=== PATIENT | female | born 1955 | race Caucasian/White ===

== ENCOUNTER 2016-11-17 10:56 | Inpatient (IN) | payer OTHER ==
[2016-11-17] VITALS (8 sets, daily range): BP systolic 117–171; BP diastolic 60–82; PULSE 68–95; RESP 16–20; TEMP 99.1–100.1; O2SAT 95–97
[~2016-11-17] VITALS: Ht 154.9 cm; Wt 72.0 kg
--- NOTE | 2016-11-17 11:06 | PD ---
Physical Exam Time Seen by Provider: 11:04 Narrative 61-year-old female presents to the emergency Department with complaint of right upper quadrant abdominal pain since yesterday. Vomiting yesterday, but not today. Is on chemotherapy for pancreatic cancer, liver cancer, and spots of cancer in her hip. Denies fevers. Denies diarrhea. Is on Pradaxa. Patient seen in triage. Vital signs reviewed. Patient awaiting medical bed. Data Data Last Documented VS Vital Signs Date Time Temp Pulse Resp B/P (MAP) Pulse Ox O2 Delivery O2 Flow Rate FiO2 11/17/16 10:58 99.1 78 17 160/76 (104) 96 Room Air MDM Supervised Visit with MASTER: Elda Leon Nov 17, 2016 11:06
[2016-11-17] MEDS ORDERED: SODIUM CHLORIDE 0.9% FLUSH 10 ML FLUSH IV FLUSH PRN ×2 (11:15→18:00)
[2016-11-17] MEDS ORDERED: SODIUM CHLOR 0.9% 1000 ML INJ 1,000 ML IV SCH (13:00)
[2016-11-17] MEDS ORDERED: HYDROmorphone HCL PF 1 MG/ML VIAL IV PUSH ONE (13:00)
[2016-11-17] MEDS ORDERED: ONDANSETRON HCL 4 MG/2 ML VIAL IV PUSH ONE (13:00)
--- NOTE | 2016-11-17 13:11 | PD ---
HPI Chief Complaint: Abdominal Pain Time Seen by Provider: 12:07 Travel History International Travel<30 days: No Contact w/Intl Traveler<30days: No Traveled to known affect area: No History of Present Illness HPI This is a very pleasant 61-year-old female with unfortunate history of metastatic pancreatic cancer with metastases to the liver and right hip, who presents today with complaints of abdominal pain. Patient reports having right upper quadrant abdominal pain. She reports vomiting with nausea yesterday. She denies any diarrhea or constipation. She reports generalized weakness. There is no reported fevers, chills. There is no reported shortness of breath or cough. The patient is followed by Dr. Haydee Li here at [facility] and also a physician up at the [facility] in [place]. PFSH Past Medical History Hx Anticoagulant Therapy: Yes Cancer: Yes (PANCREATIC, LIVER, R HIP) Chemotherapy: Yes Diminished Hearing: No Tetanus Vaccination: > 5 Years Influenza Vaccination: No ?: Not : 2 Para: 2 Miscarriage: 0 : 0 Past Surgical History Neurologic Surgery: Yes (aneurysm clip) Tonsillectomy: Yes Social History Alcohol Use: No Tobacco Use: No Substance Use: No Allergies-Medications (Allergen,Severity, Reaction): Coded Allergies: No Known Allergies (Unverified , 10/26/16) Review of Systems Except as stated in HPI: all other systems reviewed are Neg General / Constitutional: No: Fever, Chills HENT: No: Headaches, Lightheadedness, Neck Pain Cardiovascular: No: Chest Pain or Discomfort, Palpitations Respiratory: No: Cough, Shortness of Breath Gastrointestinal: Positive: Nausea, Vomiting, Abdominal Pain (right upper quadrant abdominal pain.), No: Diarrhea Genitourinary: No: Urgency, Frequency, Decreased Urinary Output Musculoskeletal: Positive: Pain (right hip pain), No: Weakness Neurologic: Positive: Weakness (generalized), No: Dizziness, Headache Physical Exam Narrative GENERAL: Well-developed well-nourished female in no acute respiratory distress. SKIN: Focused skin assessment warm/dry. HEAD: Atraumatic. Normocephalic. EYES: No scleral icterus. No injection or drainage. ENT: No nasal bleeding or discharge. Mucous membranes pink and moist. NECK: Trachea midline. No JVD. Supple. CARDIOVASCULAR: Regular rate and rhythm. No murmur appreciated. RESPIRATORY: No accessory muscle use. Clear to auscultation. Breath sounds equal bilaterally. GASTROINTESTINAL: Abdomen soft, nondistended. There is tenderness to palpation in her right upper quadrant at the level of the liver and gallbladder. There is no rebound but mild guarding. RECTAL EXAM: No masses or tenderness, stool is brown. Heme-negative. MUSCULOSKELETAL: No obvious deformities. No clubbing. No cyanosis. No edema. NEUROLOGICAL: Awake and alert. No obvious cranial nerve deficits. Motor grossly within normal limits. Normal speech. PSYCHIATRIC: Appropriate mood and affect; insight and judgment normal. Data Data Last Documented VS Vital Signs Date Time Temp Pulse Resp B/P (MAP) Pulse Ox O2 Delivery O2 Flow Rate FiO2 11/17/16 16:59 77 16 168/75 (106) 97 Room Air 11/17/16 10:58 99.1 Orders Orders Complete Blood Count With Diff (11/17/16 11:07) Comprehensive Metabolic Panel (11/17/16 11:07) Lipase (11/17/16 11:07) Prothrombin Time / Inr (Pt) (11/17/16 11:07) Act Partial Throm Time (Ptt) (11/17/16 11:07) Urinalysis - C+S If Indicated (11/17/16 11:07) Iv Access Insert/Monitor (11/17/16 11:07) Sodium Chloride 0.9% Flush (Ns Flush) (11/17/16 11:15) Ct Abd/Pel W Iv Contrast(Rout) (11/17/16 12:46) Ondansetron Inj (Zofran Inj) (11/17/16 13:00) Hydromorphone Pf Inj (Dilaudid Pf Inj) (11/17/16 13:00) Sodium Chlor 0.9% 1000 Ml Inj (Ns 1000 M (11/17/16 13:00) Diatrizoate Liq ( Gastroview Liq) (11/17/16 14:54) Urine Culture (11/17/16 15:10) Iohexol 350 Inj (Omnipaque 350 Inj) (11/17/16 16:23) Admit Order (Ed Use Only) (11/17/16 17:33) Type And Screen (11/17/16 17:33) Red Blood Cells (Rbc) (11/17/16 17:33) Blood Product Administration (11/17/16 17:33) Sodium Chlor 0.9% 250 Ml Inj (Ns 250 Ml (11/17/16 17:45) Piperacil-Tazo 3.375 Gm Premix (Zosyn 3. (11/17/16 17:45) Blood Culture (11/17/16 17:33) Consult General Surgery (11/17/16 ) Labs Laboratory Tests Test 11/17/16 13:00 11/17/16 15:10 White Blood Count 10.8 TH/MM3 Red Blood Count 2.50 MIL/MM3 Hemoglobin 8.2 GM/DL Hematocrit 24.6 % Mean Corpuscular Volume 98.4 FL Mean Corpuscular Hemoglobin 32.9 PG Mean Corpuscular Hemoglobin Concent 33.5 % Red Cell Distribution Width 16.7 % Platelet Count 70 TH/MM3 Mean Platelet Volume 10.5 FL Neutrophils (%) (Auto) 81.3 % Lymphocytes (%) (Auto) 6.3 % Monocytes (%) (Auto) 12.3 % Eosinophils (%) (Auto) 0.0 % Basophils (%) (Auto) 0.1 % Neutrophils # (Auto) 8.8 TH/MM3 Lymphocytes # (Auto) 0.7 TH/MM3 Monocytes # (Auto) 1.3 TH/MM3 Eosinophils # (Auto) 0.0 TH/MM3 Basophils # (Auto) 0.0 TH/MM3 CBC Comment AUTO DIFF Differential Total Cells Counted 100 Neutrophils % (Manual) 71 % Band Neutrophils % 18 % Lymphocytes % 4 % Monocytes % 7 % Neutrophils # (Manual) 9.6 TH/MM3 Differential Comment FINAL DIFF MANUAL Platelet Estimate LOW Platelet Morphology Comment NORMAL Tear Drop Cells 1+ Ovalocytes 1+ Prothrombin Time 11.9 SEC Prothromb Time International Ratio 1.1 RATIO Activated Partial Thromboplast Time 37.9 SEC Blood Urea Nitrogen 5 MG/DL Creatinine 0.58 MG/DL Random Glucose 118 MG/DL Total Protein 7.1 GM/DL Albumin 3.0 GM/DL Calcium Level 8.7 MG/DL Alkaline Phosphatase 190 U/L Aspartate Amino Transf (AST/SGOT) 50 U/L Alanine Aminotransferase (ALT/SGPT) 66 U/L Total Bilirubin 0.5 MG/DL Sodium Level 136 MEQ/L Potassium Level 3.8 MEQ/L Chloride Level 104 MEQ/L Carbon Dioxide Level 22.9 MEQ/L Anion Gap 9 MEQ/L Estimat Glomerular Filtration Rate 105 ML/MIN Lipase 254 U/L Urine Color LIGHT-YELLOW Urine Turbidity CLEAR Urine pH 6.5 Urine Specific [place] 1.006 Urine Protein NEG mg/dL Urine Glucose (UA) NEG mg/dL Urine Ketones NEG mg/dL Urine Occult Blood NEG Urine Nitrite NEG Urine Bilirubin NEG Urine Urobilinogen LESS THAN 2.0 MG/DL Urine Leukocyte Esterase MOD Urine RBC 1 /hpf Urine WBC 16 /hpf Urine Mucus FEW /lpf Microscopic Urinalysis Comment CULTURE INDICATED MDM Medical Decision Making Medical Screen Exam Complete: Yes Emergency Medical Condition: Yes Differential Diagnosis Bowel obstruction versus worsening metastatic disease versus peptic ulcer disease versus cholecystitis Narrative Course 61-year-old female with history of pancreatic cancer with metastases to the liver and right hip. Patient presents today with complaints of nausea vomiting and epigastric pain. The patient has tenderness over her right upper quadrant. She is afebrile. Patient's white blood cell count was 10.8 with 81% segs. Hemoglobin was also 8.2 which dropped [address] scan shows what appears to be cholecystitis. Case was discussed with Dr. Alexis Ovalles, who will see the patient in consultation. He states he will likely involve interventional radiology to see if they can put a drainage tube in. The patient be started on Zosyn and will be given her first dose here in the emergency department. She'll be also typed and crossed for transfusion of 2 units of packed red blood cells. Dr. Haydee Li, patient's oncologist, is also coming to see the patient will follow up consultation. Critical Care Narrative Aggregate critical care time was 45 minutes. Time to perform other separately billable procedures was not included in the critical care time. My time did not include minutes spent treating any other patients simultaneously or on activities that did not directly contribute to the patient's treatment. The services I provided to this patient were to treat and/or prevent clinically significant deterioration that could result in: . I provided critical care services requiring my management, as noted below: Chart data review, documentation time, medication orders and management, vital sign assessments/reviewing monitor data, ordering and reviewing lab tests, ordering and interpreting/reviewing x-rays and diagnostic studies, care of the patient and discussion of the patient with the admitting physicians. Diagnosis Primary Impression: Acute cholecystitis Additional Impressions: worsening anemia Pancreatic cancer metastasized to liver Admitting Information Admitting Physician Requests: Admit uGy Haque MD Nov 17, 2016 13:11
[2016-11-17 13:53] LABS: AUTOMATED NEUTROPHIL # 8.8 TH/MM3 (1.8-7.7); BASOPHIL % 0.1 % (0.0-2.0); HEMATOCRIT 24.6 % (35.0-46.0); LYMPH % 6.3 % (9.0-44.0); LYMPHOCYTE # 0.7 TH/MM3 (1.0-4.8); MEAN CELL VOLUME 98.4 FL (80.0-100.0); MEAN CORPUSCULAR HEMOGLOBIN 32.9 PG (27.0-34.0); MEAN CORPUSCULAR HGB CONC 33.5 % (32.0-36.0); MONO % 12.3 % (0.0-8.0); NEUT % 81.3 % (16.0-70.0); PLATELET COUNT 70 TH/MM3 (150-450); RED CELL DISTRIBUTION WIDTH 16.7 % (11.6-17.2); WHITE BLOOD COUNT 10.8 TH/MM3 (4.0-11.0)
[2016-11-17 13:59] LABS: HEMO FLAGS AUTO DIFF
[2016-11-17 14:02] LABS: APTT (PATIENT) 37.9 SEC (24.3-30.1); INTERNATIONAL NORMALIZED RATIO 1.1 RATIO; PROTHROMBIN TIME - PATIENT 11.9 SEC (9.8-11.6)
[2016-11-17 14:09] LABS: ALT (GPT) 66 U/L (10-53); ANION GAP 9 MEQ/L (5-15); AST (GOT) 50 U/L (15-37); BICARBONATE 22.9 MEQ/L (21.0-32.0); BLOOD UREA NITROGEN 5 MG/DL (7-18); CHLORIDE 104 MEQ/L (98-107); GLOMERULAR FILTRATION RATE 105 ML/MIN (>89); POTASSIUM 3.8 MEQ/L (3.5-5.1); SODIUM (NA) 136 MEQ/L (136-145)
[2016-11-17 14:11] LABS: ALKALINE PHOSPHATASE 190 U/L (45-117); TOTAL BILIRUBIN ADULT 0.5 MG/DL (0.2-1.0)
[2016-11-17 14:26] LABS: BANDS 18 % (0-6); NEUTROPHIL # MANUAL DIFF 9.6 TH/MM3 (1.8-7.7); OVALOCYTES 1+ (NORMAL); PLATELET ESTIMATE SMEAR LOW (NORMAL); PLATELET MORPHOLOGY NORMAL (NORMAL); POLYS (SEG NEUTROPHILS) 71 % (16-70); SCAN/DIFF FINAL DIFF MANUAL; TEARDROP RBCS 1+ (NORMAL); WBC DIFF SAMPLE 100
[2016-11-17] MEDS ORDERED: DIATRIZOATE MEGLUM/DIATRIZOATE SOD 9 ML CUP ONE (14:54)
[2016-11-17 15:44] LABS: BLOOD, URINE NEG (NEG); COMMENT (UR) CULTURE INDICATED; CULTURE IF INDICATED CULTURE INDICATED; GLUCOSE,URINE NEG (NEG); KETONE, URINE NEG (NEG); MUCUS URINE FEW /lpf (OCC); NITRITE,URINE NEG (NEG); PH, URINE 6.5 (5.0-8.5); URINE COLOR LIGHT-YELLOW (YELLW/STRAW)
[2016-11-17] MEDS ORDERED: IOHEXOL 350 MG/ML 10 ML VIAL (for RAD DIAG) IVCONTRAST ONE (16:23)
--- NOTE | 2016-11-17 16:49 | RADRPT ---
EXAM DATE/TIME: 11/17/2016 16:09 This report includes an Addendum and supersedes previous reports for this exam. [facility] COMPARISON: No previous studies available for comparison. INDICATIONS : Abdominal pain. IV CONTRAST: 80 cc Omnipaque 350 (iohexol) IV ORAL CONTRAST: Prescribed oral contrast ingested. RADIATION DOSE: 9.04 CTDIvol (mGy) MEDICAL HISTORY : Carcinoma, pancreas. Carcinoma, hepatocellular. SURGICAL HISTORY : None. ENCOUNTER: Initial ACUITY: 1 day PAIN SCALE: 6/10 LOCATION: Bilateral abdomen TECHNIQUE: Volumetric scanning of the abdomen and pelvis was performed. Using automated exposure control and ad justment of the mA and/or kV according to patient size, radiation dose was kept as low as reasonably achievable to obtain optimal diagnostic quality images. DICOM format image data is available electro nically for review and comparison. FINDINGS: LOWER LUNGS: The visualized lower lungs are clear. LIVER: Liver demonstrates diffuse abnormality with large patchy areas of hypodensity. There are no discrete enhancing lesions or evidence of biliary duct dilatation. Portal vein is intact. Gallbladder wall is thickened and edematous. There is no evidence of calcified stones. Common bi le that is normal in caliber. SPLEEN: Normal size without lesion. PANCREAS: Within normal limits. KIDNEYS: Normal in size and shape. There is no mass, stone or hydronephrosis. ADRENAL GLANDS: Within normal limits. VASCULAR: There is no aortic aneurysm. BOWEL/MESENTERY: The stomach, small bowel, and colon demonstrate no acute abnormality. There is no free intraperitone al air. Free fluid is identified in the pelvis. ABDOMINAL WALL: Within normal limits. RETROPERITONEUM: There is no lymphadenopathy. BLADDER: No wall thickening or mass. REPRODUCTIVE: Within normal limits. INGUINAL: There is no lymphadenopathy or hernia. MUSCULOSKELETAL: Significant lower lumbar facet arthropathy is noted. CONCLUSION: 1. Parenchymal liver disease with large patchy areas of heterogeneous hypodensity. Diffuse infiltrati ve process is suspected. 2. Thickened edematous gallbladder wall consistent with acute cholecystitis. 3. Free fluid in the pelvis. 4. Lower lumbar facet arthropathy. Darci Wilkins MD on November 17, 2016 at 16:39 Board Certified Radiologist. This report was verified electronically. ADDENDUM: Hypodense region within the tail of pancreas measuring 3.3 cm in length by 1.8 cm in width represents the patient's known pancreatic carcinoma. Darci Wilkins MD on November 17, 2016 at 17:24 Board Certified Radiologist. This report was verified electronically.
[2016-11-17] MEDS ORDERED: PIPERACIL-TAZO 3.375 GM PREMIX 50 ML IV ONE (17:45)
[2016-11-17] MEDS ORDERED: SODIUM CHLOR 0.9% 250 ML INJ 250 ML IV ONE (17:45)
[2016-11-17] MEDS ORDERED: PRAD150C PO (17:55)
[2016-11-17] MEDS ORDERED: OXAL50IN IV (17:55)
[2016-11-17] MEDS ORDERED: PROM25TA10 PO (17:55)
[2016-11-17] MEDS ORDERED: MULTTAB67 PO (17:55)
[2016-11-17] MEDS ORDERED: ZOFR4TAB PO (17:55)
[2016-11-17] MEDS ORDERED: VITA500T83 PO (17:55)
[2016-11-17] MEDS ORDERED: FERR325T8 PO (17:55)
[2016-11-17] MEDS ORDERED: [UNRECOGNIZED DRUG - CODE] IV (17:55)
[2016-11-17] MEDS ORDERED: DRON5CAP PO (17:55)
[2016-11-17] MEDS ORDERED: [UNRECOGNIZED DRUG - CODE] IV (17:55)
[2016-11-17] MEDS ORDERED: SENNOSIDES 8.6 MG TAB PO PRN (18:00)
[2016-11-17] MEDS ORDERED: BISACODYL 10 MG SUPP RECTAL PRN (18:00)
[2016-11-17] MEDS ORDERED: MAGNESIUM HYDROXIDE SUSP 30 ML CUP PO PRN (18:00)
[2016-11-17] MEDS ORDERED: ACETAMINOPHEN 325 MG TAB PO PRN (18:00)
[2016-11-17] MEDS ORDERED: NALOXONE HCL 0.4 MG/ML AMP IV PUSH PRN (18:00)
[2016-11-17] MEDS ORDERED: LACTULOSE SYRUP 20 GM/30 ML CUP PO PRN (18:00)
[2016-11-17] MEDS ORDERED: HYDROmorphone HCL PF 1 MG/ML VIAL IV PUSH PRN (19:00)
--- NOTE | 2016-11-17 19:01 | MB ---
cc: BJ BATRES MD DATE OF CONSULTATION 11/17/16 REASON FOR CONSULTATION Acute cholecystitis HISTORY OF PRESENT ILLNESS The patient is a 61-year-old female who developed abdominal pain last night and was found on workup to have what appears to be acute cholecystitis. The patient has a history of metastatic pancreatic cancer with metastases to the liver and with primary site in the tail of the pancreas. The patient had nausea and vomiting yesterday. No change in bowel habits. The patient is currently on chemotherapy with Dr. Haydee Li and is followed with a physician at [facility]. 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 She has been receiving chemotherapy. PAST MEDICAL HISTORY Also includes aneurysm clipping. The patient has had no previous abdominal surgery. SOCIAL HISTORY She does not drink, smoke or use other substances. ALLERGIES She has no known allergies. REVIEW OF SYSTEMS Noncontributory except for the right upper quadrant pain. PHYSICAL EXAMINATION GENERAL: A female in no distress. VITAL SIGNS: BP 168/75, pulse 77, respirations 16, temperature 99.1, 97% saturation on room air. HEENT: Sclerae anicteric. Pupils are reactive. NECK: Supple. Throat is clear. CHEST: Clear to auscultation. ABDOMEN: Soft with some mild right upper quadrant epigastric tenderness without guarding. There are no hernias noted. EXTREMITIES: Pulses are present. NEUROLOGIC EXAMINATION Cranial nerves II-XII grossly intact. Sensory exam grossly intact. LABORATORY FINDINGS WBCs 10.8, platelets decreased at 70,000, hemoglobin 8.2. Coagulation INR is 1.1. BUN and creatinine normal at five and 0.58. Liver function tests - AST is elevated at 50. ALT elevated as 66, alkaline phosphatase elevated at 190, bilirubin is normal at 0.5. IMAGING STUDIES CT scan demonstrates diffuse abnormality in the liver with patchy areas of hypodensity. Gallbladder is thickened and edematous without evidence of calcified gallstones. Common bile duct is normal caliber. There is a hypodense region in the tail of the pancreas measuring 3 x 3 x 1.8 cm. There is a small amount of free fluid in the pelvis. ASSESSMENT 1. Metastatic pancreatic cancer with mets to the liver. 2. Acute cholecystitis overlying other medical problems. The patient is also taking an anticoagulant, one of the newer once similar to the 10A inhibitors. She is not sure which. The patient's states it is Pradaxa but it is not 100% clear that this is the case. PLAN I have discussed options with the patient and have recommended she not undergo surgery immediately but let the anticoagulant wear off and have the patient undergo decompression first. If she develops any bleeding problems as a result of the procedure, she could be taken emergently to the operating room, although this is suboptimal. She also has thrombocytopenia and this should correct itself with time since chemotherapy and she should be recovering from her decreased counts. We will recommend she undergo cholecystostomy tube placement and then next week consider cholecystectomy once her anticoagulation has worn off. MD JOLYNN Sutton/ /6:05 PM /6:47 PM
--- NOTE | 2016-11-17 20:25 | HHI.HP ---
[facility] Primary Care Physician Criss Cordero MD Admission Diagnosis worsening anemia, cholechystitis, metastatic pancreatic cancer Diagnoses: (1) Pancreatic cancer metastasized to liver Diagnosis: Principal (2) Acute cholecystitis Diagnosis: Principal Travel History International Travel<30 Days: No Contact w/Intl Traveler <30 Da: No Traveled to Known Affected Are: No History of Present Illness Mrs. Sharma is a 61-year-old female. She is here after having 24 hours of abdominal pain. Right upper quadrant pain is present and she had nausea and vomiting. She has metastatic pancreatic cancer with metastasis to the right hip and liver. She is on chemotherapy for this but reports that she doesn't typically have nausea or vomiting with her chemotherapy thus far. So, but nausea and vomiting was atypical for her. She informed her oncologist and they sent her to the ER. Imaging in the ER shows evidence of acute cholecystitis. She is not a good candidate for surgery, both because of her immunocompromised state and due to the metastatic disease in the area of the liver. Plan for now is stenting with a backup plan for surgery if needed. Patient denies any fevers she has no signs of sepsis tonight. No other complaints. Review of Systems Constitutional: DENIES: Fatigue, Fever, Chills, Night Sweats Eyes: DENIES: Blurred vision, Diplopia, Eye inflammation, Eye pain Ears, nose, mouth, throat: DENIES: Tinnitus, Hearing loss, Vertigo Respiratory: DENIES: Cough, Wheezing, Shortness of breath Cardiovascular: DENIES: Chest pain, Palpitations, Syncope Gastrointestinal: COMPLAINS OF: Abdominal pain, Nausea, Vomiting, DENIES: Black stools, Bloody stools Musculoskeletal: DENIES: Joint pain, Muscle aches, Stiffness Integumentary: DENIES: Abnormal pigmentation, Pruritus, Rash Hematologic/lymphatic: DENIES: Bruising, Lymphadenopathy Immunologic/allergic: DENIES: Eczema, Urticaria Neurologic: DENIES: Abnormal gait, Headache, Localized weakness Psychiatric: DENIES: Anxiety, Confusion, Hallucinations Past Family Social History Past Medical History Pancreatic cancer Brain aneurysm History of blood clots Past Surgical History Brain aneurysm clipping Tonsillectomy Reported Medications Reported Meds & Active Scripts Active Reported Phenergan (Promethazine HCl) 25 Mg Tablet 25 Mg PO Q6H PRN Zofran (Ondansetron HCl) 4 Mg Tab 4 Mg PO Q6HR PRN Leucovorin Inj (Leucovorin Calcium) 50 Mg Inj Unknown Dose IV DIRECTED Irinotecan (Irinotecan HCl) 40 Mg/2 Ml Inj Unknown Dose IV DIRECTED Dronabinol 5 Mg Cap 5 Mg PO BID Pradaxa (Dabigatran) 150 Mg Cap 150 Mg PO BID Oxaliplatin Inj (Oxaliplatin) 50 Mg/10 Ml (5 Mg/Ml) Inj Unknown Dose IV DIRECTED Vitamin C ER (Ascorbic Acid) 500 Mg Rukhsana 500 Mg PO Ferrous Sulfate 325 Mg (65 Mg Iron) Tablet 325 Mg PO DAILY Multiple Vitamin 1 Tab 1 Tab PO DAILY Allergies: Coded Allergies: No Known Allergies (Unverified , 11/17/16) Family History Cancer in mother (" female organs") Prostate cancer in brother Shelly cystectomy in son Social History No smoking history No alcohol abuse No illicit drug abuse Physical Exam Vital Signs Vital Signs Date Time Temp Pulse Resp B/P (MAP) Pulse Ox O2 Delivery O2 Flow Rate FiO2 11/17/16 19:39 21 11/17/16 19:14 95 18 127/60 (82) 95 Room Air 11/17/16 18:55 88 18 142/82 (102) 96 Room Air 11/17/16 16:59 77 16 168/75 (106) 97 Room Air 11/17/16 13:40 20 11/17/16 12:43 68 16 171/74 (106) 97 Room Air 11/17/16 10:58 99.1 78 17 160/76 (104) 96 Room Air Physical Exam GENERAL: NAD, A&Ox3 HEAD: Normocephalic. Hat covering her NECK: Supple, trachea midline. No lymphadenopathy. EYES: No scleral icterus. No injection or drainage. CARDIOVASCULAR: Regular rate and rhythm without murmurs, gallops, or rubs. RESPIRATORY: Breath sounds equal bilaterally. No accessory muscle use. GASTROINTESTINAL: Abdomen soft, nondistended. Tenderness at abdomen. MUSCULOSKELETAL: No cyanosis, or edema. SKIN: Warm and dry. NEURO: No focal neurological deficitis. Laboratory Laboratory Tests Test 11/17/16 13:00 11/17/16 15:10 White Blood Count 10.8 Red Blood Count 2.50 Hemoglobin 8.2 Hematocrit 24.6 Mean Corpuscular Volume 98.4 Mean Corpuscular Hemoglobin 32.9 Mean Corpuscular Hemoglobin Concent 33.5 Red Cell Distribution Width 16.7 Platelet Count 70 Mean Platelet Volume 10.5 Neutrophils (%) (Auto) 81.3 Lymphocytes (%) (Auto) 6.3 Monocytes (%) (Auto) 12.3 Eosinophils (%) (Auto) 0.0 Basophils (%) (Auto) 0.1 Neutrophils # (Auto) 8.8 Lymphocytes # (Auto) 0.7 Monocytes # (Auto) 1.3 Eosinophils # (Auto) 0.0 Basophils # (Auto) 0.0 CBC Comment AUTO DIFF Differential Total Cells Counted 100 Neutrophils % (Manual) 71 Band Neutrophils % 18 Lymphocytes % 4 Monocytes % 7 Neutrophils # (Manual) 9.6 Differential Comment FINAL DIFF MANUAL Platelet Estimate LOW Platelet Morphology Comment NORMAL Tear Drop Cells 1+ Ovalocytes 1+ Prothrombin Time 11.9 Prothromb Time International Ratio 1.1 Activated Partial Thromboplast Time 37.9 Blood Urea Nitrogen 5 Creatinine 0.58 Random Glucose 118 Total Protein 7.1 Albumin 3.0 Calcium Level 8.7 Alkaline Phosphatase 190 Aspartate Amino Transf (AST/SGOT) 50 Alanine Aminotransferase (ALT/SGPT) 66 Total Bilirubin 0.5 Sodium Level 136 Potassium Level 3.8 Chloride Level 104 Carbon Dioxide Level 22.9 Anion Gap 9 Estimat Glomerular Filtration Rate 105 Lipase 254 Urine Color LIGHT-YELLOW Urine Turbidity CLEAR Urine pH 6.5 Urine Specific [place] 1.006 Urine Protein NEG Urine Glucose (UA) NEG Urine Ketones NEG Urine Occult Blood NEG Urine Nitrite NEG Urine Bilirubin NEG Urine Urobilinogen LESS THAN 2.0 Urine Leukocyte Esterase MOD Urine RBC 1 Urine WBC 16 Urine Mucus FEW Microscopic Urinalysis Comment CULTURE INDICATED Date/Time Source Procedure Growth Status 11/17/16 18:00 Blood Peripheral Aerobic Blood Culture Pending Received 11/17/16 18:00 Blood Peripheral Anaerobic Blood Culture Pending Received 11/17/16 15:10 Urine Random Urine Urine Culture Pending Received Result Diagram: 11/17/16 1300 11/17/16 1300 Imaging Last Impressions Abdomen/Pelvis CT 11/17/16 1246 Signed Impressions: Service Date/Time: November 16:09 - CONCLUSION: 1. Parenchymal liver disease with large patchy areas of heterogeneous hypodensity. Diffuse infiltrative process is suspected. 2. Thickened edematous gallbladder wall consistent with acute cholecystitis. 3. Free fluid in the pelvis. 4. Lower lumbar facet arthropathy. Darci Wilkins MD ADDENDUM: Hypodense region within the tail of pancreas measuring 3.3 cm in length by 1.8 cm in width represents the patient's known pancreatic carcinoma. Darci Wilkins MD Caprini VTE Risk Assessment Caprini VTE Risk Assessment: Mod/High Risk (score >= 2) Caprini Risk Assessment Model Point Value = 1 Point Value = 2 Point Value = 3 Point Value = 5 Age 41-60 Minor surgery BMI > 25 kg/m2 Swollen legs Varicose veins or History of unexplained or recurrent spontaneous Oral contraceptives or hormone replacement Sepsis (< 1 month) Serious lung disease, including pneumonia (< 1 month) Abnormal pulmonary function Acute myocardial infarction Congestive heart failure (< 1 month) History of inflammatory bowel disease Medical patient at bed rest Age 61-74 Arthroscopic surgery Major open surgery (> 45 min) Laparoscopic surgery (> 45 min) Malignancy Confined to bed (> 72 hours) Immobilizing plaster cast Central venous access Age >= 75 History of VTE Family history of VTE Factor V Leiden Prothrombin [id number] Lupus anticoagulant Anticardiolipin antibodies Elevated serum homocysteine Heparin-induced thrombocytopenia Other congenital or acquired thrombophilia Stroke (< 1 month) Elective arthroplasty Hip, pelvis, or leg fracture Acute spinal cord injury (< 1 month) Prophylaxis Regimen Total Risk Factor Score Risk Level Prophylaxis Regimen 0-1 Low Early ambulation 2 Moderate Order ONE of the following: *Sequential Compression Device (SCD) *Heparin 5000 units SQ BID 3-4 Higher Order ONE of the following medications: *Heparin 5000 units SQ TID *Enoxaparin/Lovenox 40 mg SQ daily (WT < 150 kg, CrCl > 30 mL/min) *Enoxaparin/Lovenox 30 mg SQ daily (WT < 150 kg, CrCl > 10-29 mL/min) *Enoxaparin/Lovenox 30 mg SQ BID (WT < 150 kg, CrCl > 30 mL/min) AND/OR *Sequential Compression Device (SCD) 5 or more Highest Order ONE of the following medications: *Heparin 5000 units SQ TID (Preferred with Epidurals) *Enoxaparin/Lovenox 40 mg SQ daily (WT < 150 kg, CrCl > 30 mL/min) *Enoxaparin/Lovenox 30 mg SQ daily (WT < 150 kg, CrCl > 10-29 mL/min) *Enoxaparin/Lovenox 30 mg SQ BID (WT < 150 kg, CrCl > 30 mL/min) AND *Sequential Compression Device (SCD) Assessment and Plan Problem List: (1) Pancreatic cancer metastasized to liver ICD Code: C25.9 - Malignant neoplasm of pancreas, unspecified; C78.7 - Secondary malignant neoplasm of liver and intrahepatic bile duct Status: Acute (2) Acute cholecystitis ICD Code: K81.0 - Acute cholecystitis; C78.7 - Secondary malignant neoplasm of liver and intrahepatic bile duct Status: Acute Assessment and Plan Assessment and plan 61-year-old female admitted secondary to acute cholecystitis and presence of pancreatic cancer with metastasis, on active chemotherapy. Acute cholecystitis Continue as needed pain treatments Zosyn every 8 hours Follow CBC Follow CMP Surgery consulted GI consulted Plan for stenting as a first option Surgery is a secondary option PRN zofran PRN pain treatments Monitor vitals Hypercoagulability History of blood clots At baseline she is on Pradaxa Hold Pradaxa for stenting procedure Consider heparin bridge if surgery ends up being a necessary option Pancreatic Cancer Oncology consulted Hold chemo for now History of brain aneurysm Had clipping procedure previously Follow clinically DVT prophylaxis SCDs for now Physician Certification 2 Midnight Certification Type: Admission for Inpatient Services Order for Inpatient Services The services are ordered in accordance with Medicare regulations or non- Medicare payer requirements, as applicable. In the case of services not specified as inpatient-only, they are appropriately provided as inpatient services in accordance with the 2-midnight benchmark. Estimated LOS (days): 3 days is the estimated time the patient will need to remain in the hospital, assuming treatment plan goals are met and no additional complications. Post-Hospital Plan: Home Tyson Keyes MD Nov 17, 2016 20:25
[2016-11-17] MEDS: DOCUSATE SODIUM 50 MG/SENNA 8.6 MG TAB PO SCH (21:00)
[2016-11-17] MEDS: SODIUM CHLORIDE 0.9% FLUSH 10 ML FLUSH IV FLUSH SCH (21:00)
[2016-11-17] MEDS ORDERED: PIPERACIL-TAZO 4.5 GM PREMIX 100 ML IV SCH (22:00)
[2016-11-17] MEDS: SODIUM CHLOR 0.9% 1000 ML INJ 1,000 ML IV SCH (22:15)
[2016-11-17] MEDS ORDERED: HEPARIN-D5W 25,000 U/250 ML 250 ML IV ONE (22:30)
[2016-11-17] MEDS ORDERED: IDARUcizUMAB INJ 100 ML IV ONE (23:00)
[2016-11-17] MEDS: ONDANSETRON HCL 4 MG/2 ML VIAL IVP PRN (23:54)
[2016-11-18 01:12] LABS: APTT (PATIENT) 25.5 SEC (24.3-30.1); PROTHROMBIN TIME - PATIENT 11.1 SEC (9.8-11.6)
[2016-11-18 02:21] VITALS: BP 139/72; PULSE 93; RESP 20; TEMP 99.7; O2SAT 96
[2016-11-18 02:38] VITALS: BP 131/65; PULSE 87; RESP 19; TEMP 99.2; O2SAT 93
[2016-11-18] MEDS: SODIUM CHLOR 0.9% 1000 ML INJ 1,000 ML IV SCH ×2 (03:48→23:48)
[2016-11-18 05:41] VITALS: BP 140/76; PULSE 94; RESP 18; TEMP 98.3; O2SAT 94
[2016-11-18] MEDS: PIPERACIL-TAZO 3.375 GM PREMIX 50 ML IV SCH ×3 (05:49→18:07)
[2016-11-18 07:07] LABS: AUTOMATED NEUTROPHIL # 5.4 TH/MM3 (1.8-7.7); BASOPHIL % 0.1 % (0.0-2.0); EOSINOPHIL % 0.2 % (0.0-4.0); HEMATOCRIT 34.8 % (35.0-46.0); LYMPH % 9.9 % (9.0-44.0); LYMPHOCYTE # 0.7 TH/MM3 (1.0-4.8); MEAN CELL VOLUME 92.7 FL (80.0-100.0); MEAN CORPUSCULAR HEMOGLOBIN 30.9 PG (27.0-34.0); MEAN CORPUSCULAR HGB CONC 33.4 % (32.0-36.0); MONO % 17.9 % (0.0-8.0); NEUT % 71.9 % (16.0-70.0); PLATELET COUNT 55 TH/MM3 (150-450); RED BLOOD COUNT 3.75 MIL/MM3 (4.00-5.30); RED CELL DISTRIBUTION WIDTH 18.5 % (11.6-17.2); WHITE BLOOD COUNT 7.6 TH/MM3 (4.0-11.0)
[2016-11-18 07:24] LABS: HEMO FLAGS AUTO DIFF
[2016-11-18 07:45] LABS: BICARBONATE 23.6 MEQ/L (21.0-32.0); POTASSIUM 3.5 MEQ/L (3.5-5.1)
[2016-11-18 08:00] VITALS: BP_SYST 124; BP_SYST 159; BP_DIAS 78; BP_DIAS 95; PULSE 75; PULSE 99; RESP 16; RESP 20; TEMP 97.1; TEMP 98; O2SAT 100; O2SAT 94
[2016-11-18 08:34] LABS: BANDS 11 % (0-6); BASOPHILS 1 % (0-2); NEUTROPHIL # MANUAL DIFF 6.1 TH/MM3 (1.8-7.7); POLYS (SEG NEUTROPHILS) 69 % (16-70); WBC DIFF SAMPLE 100
[2016-11-18 08:35] LABS: PLATELET ESTIMATE SMEAR LOW (NORMAL); PLATELET MORPHOLOGY NORMAL (NORMAL); SCAN/DIFF FINAL DIFF MANUAL
[2016-11-18 08:42] LABS: OVALOCYTES 1+ (NORMAL); TEARDROP RBCS 1+ (NORMAL)
--- NOTE | 2016-11-18 08:48 | HHI.PR ---
Subjective Remarks In bed, appears in nad. Some abdominal pian improved since yesterday. No n/v/d/ c. No fever or chills. Received reversal for pradaxa. Plan for surgery today Objective Vitals Vital Signs Date Time Temp Pulse Resp B/P (MAP) Pulse Ox O2 Delivery O2 Flow Rate FiO2 11/18/16 08:00 98.0 99 20 124/78 (93) 94 11/18/16 05:41 98.3 94 18 140/76 94 11/18/16 02:38 99.2 87 19 131/65 93 11/18/16 02:21 99.7 93 20 139/72 96 11/17/16 23:13 100.0 92 20 124/67 95 11/17/16 22:48 99.7 91 20 117/68 (84) 95 11/17/16 21:48 100.1 92 20 148/72 (97) 95 11/17/16 21:25 11/17/16 19:39 21 11/17/16 19:14 95 18 127/60 (82) 95 Room Air 11/17/16 18:55 88 18 142/82 (102) 96 Room Air 11/17/16 16:59 77 16 168/75 (106) 97 Room Air 11/17/16 13:40 20 11/17/16 12:43 68 16 171/74 (106) 97 Room Air 11/17/16 10:58 99.1 78 17 160/76 (104) 96 Room Air I/O 11/17/16 11/17/16 11/17/16 11/18/16 11/18/16 11/18/16 07:00 15:00 23:00 07:00 15:00 23:00 Intake Total 70 ml 860 ml Balance 70 ml 860 ml Intake IV Total 50 ml Packed Cells 800 ml Blood Product IV Normal Saline Flush 20 ml 60 ml # Voids 2 Result Diagram: 11/18/16 0638 11/18/16 0638 Imaging Last Impressions Abdomen/Pelvis CT 11/17/16 1246 Signed Impressions: Service Date/Time: November 16:09 - CONCLUSION: 1. Parenchymal liver disease with large patchy areas of heterogeneous hypodensity. Diffuse infiltrative process is suspected. 2. Thickened edematous gallbladder wall consistent with acute cholecystitis. 3. Free fluid in the pelvis. 4. Lower lumbar facet arthropathy. Darci Wilkins MD ADDENDUM: Hypodense region within the tail of pancreas measuring 3.3 cm in length by 1.8 cm in width represents the patient's known pancreatic carcinoma. Darci Wilkins MD Objective Remarks GENERAL: Pleasant 61 yo female, appears in NAD, A&Ox3 CARDIOVASCULAR: Regular rate and rhythm without murmurs, gallops, or rubs. RESPIRATORY: Breath sounds equal bilaterally. No accessory muscle use. GASTROINTESTINAL: Abdomen soft, nondistended. Mild diffuse tenderness , however more prominent on RUQ. MUSCULOSKELETAL: No cyanosis, or edema. SKIN: Warm and dry. NEURO: No focal neurological deficitis. A/P Problem List: (1) Pancreatic cancer metastasized to liver ICD Code: C25.9 - Malignant neoplasm of pancreas, unspecified; C78.7 - Secondary malignant neoplasm of liver and intrahepatic bile duct Status: Acute (2) Acute cholecystitis ICD Code: K81.0 - Acute cholecystitis; C78.7 - Secondary malignant neoplasm of liver and intrahepatic bile duct Status: Acute Assessment and Plan 61-year-old female admitted secondary to acute cholecystitis and presence of pancreatic cancer with metastasis, on active chemotherapy. Acute cholecystitis Continue as needed pain treatments Zosyn every 8 hours Follow CBC Follow CMP Surgery consulted GI consulted Surgery consulted. Pradaxa reversal. Plan for OR by gen surgery PRN zofran PRN pain treatments Monitor vitals Hypercoagulability History of blood clots At baseline she is on Pradaxa Hold Pradaxa for stenting procedure Consider heparin bridge if surgery ends up being a necessary option Pancreatic Cancer Oncology consulted Hold chemo for now History of brain aneurysm Had clipping procedure previously Follow clinically DVT prophylaxis SCDs for now, received pradaxa reversal, as plan for emergent Joi Galvez MD Nov 18, 2016 08:48
[2016-11-18] MEDS: SODIUM CHLORIDE 0.9% FLUSH 10 ML FLUSH IV FLUSH SCH ×2 (09:00→21:00)
--- NOTE | 2016-11-18 09:04 | PD.CONS ---
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 She was diagnosed with pancreatic cancer with metastatic disease to the liver in May of 2016 in [place]. She then moved to this area in July and transferred her care to the [facility], where she sees Dr. Sorto. She was started on FOLFIRINOX every two weeks. Her last dose was on November 02. She was due for a dose this past Monday, but it was cancelled secondary to thrombocytopenia. Since her diagnosis and starting chemotherapy, she has had decreased appetite and has lost 50 lbs. However, her states that this has been stable for the past 2 months. She reports that her pain began 2 days ago and is a constant ache in RUQ. She reports when the pain initially began, she also had associated nausea and vomited once on Monday- nonbloody emesis. The pain is related to movement. She cannot tell if it is related to food intake, but states she has only been taking clear liquids for the past few days because of the nausea. CT Scan abdomen and pelvis (11/17/16)---> Parenchymal liver disease with large patchy areas of heterogeneous hypodensity. Diffuse infiltrative process is suspected. Thickened edematous gallbladder wall consistent with acute cholecystitis. Free fluid in the pelvis, lower lumbar facet arthropathy, hypodense region within the tail of the pancreas measuring 3.3 cm in length by 1.8 cm in width represents the patient's known pancreatic carcinoma. WBC 7.6. LFTs T. Bili 0.5 , AST 50, ALT 66, Alk Phosph 190. She has been evaluated by general surgery and the plan is for cholecystomy tube placement by interventional radiology later this afternoon. (Fabiola Morris) PFSH Past Medical History Metastatic pancreatic cancer with disease to the liver Brain aneurysm PE DVT Splenic vein occlusion Thrombocytopenia Unintentional weight loss Past Surgical History Brain aneurysm clipping Tonsillectomy Colonoscopy EUS with FNA CT guided liver biopsy (Fabiola Morris) Coded Allergies: No Known Allergies (Unverified , 11/17/16) Medications Allergies Coded Allergies Type Severity Reaction Last Updated Verified No Known Allergies 11/17/16 No Active Scripts Medications Dose Route/Sig Max Daily Dose Days Date Category Phenergan (Promethazine HCl) 25 Mg Tablet 25 Mg PO Q6H PRN 11/17/16 Reported Zofran (Ondansetron HCl) 4 Mg Tab 4 Mg PO Q6HR PRN 11/17/16 Reported Leucovorin Inj (Leucovorin Calcium) 50 Mg Inj Unknown Dose IV DIRECTED 11/17/16 Reported Irinotecan (Irinotecan HCl) 40 Mg/2 Ml Inj Unknown Dose IV DIRECTED 11/17/16 Reported Dronabinol 5 Mg Cap 5 Mg PO BID 11/17/16 Reported Pradaxa (Dabigatran) 150 Mg Cap 150 Mg PO BID 11/17/16 Reported Oxaliplatin Inj (Oxaliplatin) 50 Mg/10 Ml (5 Mg/Ml) Inj Unknown Dose IV DIRECTED 11/17/16 Reported Vitamin C ER (Ascorbic Acid) 500 Mg Rukhsana 500 Mg PO 11/17/16 Reported Ferrous Sulfate 325 Mg (65 Mg Iron) Tablet 325 Mg PO DAILY 11/17/16 Reported Multiple Vitamin 1 Tab 1 Tab PO DAILY 11/17/16 Reported Family History Mother had some type of female cancer Prostate cancer in brother Social History No smoking history No alcohol abuse No illicit drug abuse (Fabiola Morris) Review of Systems Constitutional: COMPLAINS OF: Fatigue, Weight loss, Change in appetite Respiratory: DENIES: Cough Cardiovascular: DENIES: Chest pain Gastrointestinal: COMPLAINS OF: Abdominal pain, Nausea, Vomiting, DENIES: Black stools, Bloody stools, Swelling of Abdomen, Heartburn, Hematemesis Musculoskeletal: COMPLAINS OF: Joint pain, Back pain Hematologic/lymphatic: COMPLAINS OF: Bruising Neurologic: DENIES: Headache Psychiatric: DENIES: Confusion (Fabiola Morris) GI Exam Vitals I&O Vital Signs Date Time Temp Pulse Resp B/P (MAP) Pulse Ox O2 Delivery O2 Flow Rate FiO2 11/18/16 08:00 98.0 99 20 124/78 (93) 94 11/18/16 05:41 98.3 94 18 140/76 94 11/18/16 02:38 99.2 87 19 131/65 93 11/18/16 02:21 99.7 93 20 139/72 96 11/17/16 23:13 100.0 92 20 124/67 95 11/17/16 22:48 99.7 91 20 117/68 (84) 95 10/12/17 21:48 100.1 92 20 148/72 (97) 95 11/17/16 21:25 11/17/16 19:39 21 11/17/16 19:14 95 18 127/60 (82) 95 Room Air 11/17/16 18:55 88 18 142/82 (102) 96 Room Air 11/17/16 16:59 77 16 168/75 (106) 97 Room Air 11/17/16 13:40 20 11/17/16 12:43 68 16 171/74 (106) 97 Room Air 11/17/16 10:58 99.1 78 17 160/76 (104) 96 Room Air I/O 11/17/16 11/17/16 11/17/16 11/18/16 11/18/16 11/18/16 07:00 15:00 23:00 07:00 15:00 23:00 Intake Total 70 ml 860 ml Balance 70 ml 860 ml Intake IV Total 50 ml Packed Cells 800 ml Blood Product IV Normal Saline Flush 20 ml 60 ml # Voids 2 Imaging Last Impressions Abdomen/Pelvis CT 11/17/16 1246 Signed Impressions: Service Date/Time: November 16:09 - CONCLUSION: 1. Parenchymal liver disease with large patchy areas of heterogeneous hypodensity. Diffuse infiltrative process is suspected. 2. Thickened edematous gallbladder wall consistent with acute cholecystitis. 3. Free fluid in the pelvis. 4. Lower lumbar facet arthropathy. Darci Wilkins MD ADDENDUM: Hypodense region within the tail of pancreas measuring 3.3 cm in length by 1.8 cm in width represents the patient's known pancreatic carcinoma. Darci Wilkins MD Laboratory Test 11/17/16 13:00 11/17/16 15:10 11/18/16 00:30 11/18/16 06:38 White Blood Count 10.8 TH/MM3 7.6 TH/MM3 Red Blood Count 2.50 MIL/MM3 3.75 MIL/MM3 Hemoglobin 8.2 GM/DL 11.6 GM/DL Hematocrit 24.6 % 34.8 % Mean Corpuscular Volume 98.4 FL 92.7 FL Mean Corpuscular Hemoglobin 32.9 PG 30.9 PG Mean Corpuscular Hemoglobin Concent 33.5 % 33.4 % Red Cell Distribution Width 16.7 % 18.5 % Platelet Count 70 TH/MM3 55 TH/MM3 Mean Platelet Volume 10.5 FL 8.8 FL Neutrophils (%) (Auto) 81.3 % 71.9 % Lymphocytes (%) (Auto) 6.3 % 9.9 % Monocytes (%) (Auto) 12.3 % 17.9 % Eosinophils (%) (Auto) 0.0 % 0.2 % Basophils (%) (Auto) 0.1 % 0.1 % Neutrophils # (Auto) 8.8 TH/MM3 5.4 TH/MM3 Lymphocytes # (Auto) 0.7 TH/MM3 0.7 TH/MM3 Monocytes # (Auto) 1.3 TH/MM3 1.4 TH/MM3 Eosinophils # (Auto) 0.0 TH/MM3 0.0 TH/MM3 Basophils # (Auto) 0.0 TH/MM3 0.0 TH/MM3 CBC Comment AUTO DIFF AUTO DIFF Differential Total Cells Counted 100 100 Neutrophils % (Manual) 71 % 69 % Band Neutrophils % 18 % 11 % Lymphocytes % 4 % 6 % Monocytes % 7 % 13 % Neutrophils # (Manual) 9.6 TH/MM3 6.1 TH/MM3 Differential Comment FINAL DIFF MANUAL FINAL DIFF MANUAL Platelet Estimate LOW LOW Platelet Morphology Comment NORMAL NORMAL Tear Drop Cells 1+ 1+ Ovalocytes 1+ 1+ Prothrombin Time 11.9 SEC 11.1 SEC Prothromb Time International Ratio 1.1 RATIO 1.0 RATIO Activated Partial Thromboplast Time 37.9 SEC 25.5 SEC Blood Urea Nitrogen 5 MG/DL 6 MG/DL Creatinine 0.58 MG/DL 0.60 MG/DL Random Glucose 118 MG/DL 102 MG/DL Total Protein 7.1 GM/DL Albumin 3.0 GM/DL Calcium Level 8.7 MG/DL 8.3 MG/DL Alkaline Phosphatase 190 U/L Aspartate Amino Transf (AST/SGOT) 50 U/L Alanine Aminotransferase (ALT/SGPT) 66 U/L Total Bilirubin 0.5 MG/DL Sodium Level 136 MEQ/L 137 MEQ/L Potassium Level 3.8 MEQ/L 3.5 MEQ/L Chloride Level 104 MEQ/L 104 MEQ/L Carbon Dioxide Level 22.9 MEQ/L 23.6 MEQ/L Anion Gap 9 MEQ/L 9 MEQ/L Estimat Glomerular Filtration Rate 105 ML/MIN 101 ML/MIN Lipase 254 U/L Urine Color LIGHT-YELLOW Urine Turbidity CLEAR Urine pH 6.5 Urine Specific [place] 1.006 Urine Protein NEG mg/dL Urine Glucose (UA) NEG mg/dL Urine Ketones NEG mg/dL Urine Occult Blood NEG Urine Nitrite NEG Urine Bilirubin NEG Urine Urobilinogen LESS THAN 2.0 MG/DL Urine Leukocyte Esterase MOD Urine RBC 1 /hpf Urine WBC 16 /hpf Urine Mucus FEW /lpf Microscopic Urinalysis Comment CULTURE INDICATED Basophils % 1 % Date/Time Source Procedure Growth Status 11/17/16 18:00 Blood Peripheral Aerobic Blood Culture Pending Received 11/17/16 18:00 Blood Peripheral Anaerobic Blood Culture Pending Received 11/17/16 15:10 Urine Random Urine Urine Culture Pending Received Physical Examination HEENT: Normocephalic; atraumatic; no jaundice. CHEST: Resp even/unlabored. CARDIAC: RRR ABDOMEN: Soft, nondistended, RUQ tenderness; no hepatosplenomegaly; bowel sounds are present in all four quadrants. EXTREMITIES: No clubbing, cyanosis, or edema. SKIN: Normal; no rash; no jaundice. ROAD TESTER: No focal deficits; alert and oriented times three. (Fabiola Morris) Assessment and Plan Plan ASSESSMENT: - Acute cholecystitis. CT Scan abdomen and pelvis (11/17/16)---> Parenchymal liver disease with large patchy areas of heterogeneous hypodensity. Diffuse infiltrative process is suspected. Thickened edematous gallbladder wall consistent with acute cholecystitis. Free fluid in the pelvis, lower lumbar facet arthropathy, hypodense region within the tail of the pancreas measuring 3.3 cm in length by 1.8 cm in width represents the patient's known pancreatic carcinoma. WBC 7.6. LFTs T. Bili 0.5, AST 50, ALT 66, Alk Phosph 190. NPO. Zosyn. Plan is for cholecystomy tube by IR. - Elevated LFTs, not obstructive. Likely related to cholecystitis/possible metastatic disease to liver - Metastatic pancreatic cancer. Dx in May of 2016 in [place]. She moved to this area in July and transferred her care to the [facility], where she sees Dr. Sorto. She recently started seeing Dr. Li here locally. She is getting FOLFIRINOX every two weeks, last dose November 02. She was due for a dose this past Monday, but it was cancelled secondary to thrombocytopenia. - Thrombocytopenia secondary to chemotherapy. Plt 55. - Hx PE/DVT, on Pradaxa at home. Currently on heparin gtt. PLAN: - NPO - Cont. Zosyn - Cont. IVF - Monitor labs - GS following, planning on cholecystomy tube placement by IR - Oncology following - Pt seen and examined by Dr. Herrera and myself and this note is written on his behalf (Fabiola Morris) Physician Comments Seen and examined with DARIO, s/p cholecystostomy tube placement. Not a candidate for surgery at this time. Surgery on case. Nothing to add from gi standpoint. Will sign off, reconsult as needed. Thank you (Lashae Herrera MD) Fabiola Morris Nov 18, 2016 09:04 Lashae Herrera MD Nov 18, 2016 15:18
[2016-11-18] MEDS: DOCUSATE SODIUM 50 MG/SENNA 8.6 MG TAB PO SCH ×2 (09:50→21:00)
[2016-11-18] MEDS: ONDANSETRON HCL 4 MG/2 ML VIAL IVP PRN (09:50)
--- NOTE | 2016-11-18 10:08 | HHI.PR ---
Subjective Subjective Notes Sore RUQ Objective Vitals/I&O Vital Signs Date Time Temp Pulse Resp B/P (MAP) Pulse Ox O2 Delivery O2 Flow Rate FiO2 11/18/16 08:00 98.0 99 20 124/78 (93) 94 11/17/16 19:39 21 11/17/16 19:14 Room Air Labs Laboratory Tests Test 11/17/16 13:00 11/17/16 15:10 11/18/16 00:30 11/18/16 06:38 White Blood Count 10.8 7.6 Red Blood Count 2.50 3.75 Hemoglobin 8.2 11.6 Hematocrit 24.6 34.8 Mean Corpuscular Volume 98.4 92.7 Mean Corpuscular Hemoglobin 32.9 30.9 Mean Corpuscular Hemoglobin Concent 33.5 33.4 Red Cell Distribution Width 16.7 18.5 Platelet Count 70 55 Mean Platelet Volume 10.5 8.8 Neutrophils (%) (Auto) 81.3 71.9 Lymphocytes (%) (Auto) 6.3 9.9 Monocytes (%) (Auto) 12.3 17.9 Eosinophils (%) (Auto) 0.0 0.2 Basophils (%) (Auto) 0.1 0.1 Neutrophils # (Auto) 8.8 5.4 Lymphocytes # (Auto) 0.7 0.7 Monocytes # (Auto) 1.3 1.4 Eosinophils # (Auto) 0.0 0.0 Basophils # (Auto) 0.0 0.0 CBC Comment AUTO DIFF AUTO DIFF Differential Total Cells Counted 100 100 Neutrophils % (Manual) 71 69 Band Neutrophils % 18 11 Lymphocytes % 4 6 Monocytes % 7 13 Neutrophils # (Manual) 9.6 6.1 Differential Comment FINAL DIFF MANUAL FINAL DIFF MANUAL Platelet Estimate LOW LOW Platelet Morphology Comment NORMAL NORMAL Tear Drop Cells 1+ 1+ Ovalocytes 1+ 1+ Prothrombin Time 11.9 11.1 Prothromb Time International Ratio 1.1 1.0 Activated Partial Thromboplast Time 37.9 25.5 Blood Urea Nitrogen 5 6 Creatinine 0.58 0.60 Random Glucose 118 102 Total Protein 7.1 Albumin 3.0 Calcium Level 8.7 8.3 Alkaline Phosphatase 190 Aspartate Amino Transf (AST/SGOT) 50 Alanine Aminotransferase (ALT/SGPT) 66 Total Bilirubin 0.5 Sodium Level 136 137 Potassium Level 3.8 3.5 Chloride Level 104 104 Carbon Dioxide Level 22.9 23.6 Anion Gap 9 9 Estimat Glomerular Filtration Rate 105 101 Lipase 254 Urine Color LIGHT-YELLOW Urine Turbidity CLEAR Urine pH 6.5 Urine Specific [place] 1.006 Urine Protein NEG Urine Glucose (UA) NEG Urine Ketones NEG Urine Occult Blood NEG Urine Nitrite NEG Urine Bilirubin NEG Urine Urobilinogen LESS THAN 2.0 Urine Leukocyte Esterase MOD Urine RBC 1 Urine WBC 16 Urine Mucus FEW Microscopic Urinalysis Comment CULTURE INDICATED Basophils % 1 Date/Time Source Procedure Growth Status 11/17/16 18:00 Blood Peripheral Aerobic Blood Culture Pending Received 11/17/16 18:00 Blood Peripheral Anaerobic Blood Culture Pending Received 11/17/16 15:10 Urine Random Urine Urine Culture Pending Received Abdomen: Non-distended A/P Assessment and Plan Anticoagulant reversed, but platelet count lower No fevers, tachycardia, or hypotension No signs sepsis Cholecystostomy tube medically necessary Will have patient undergo cholecystectomy as platelet count recovers to minimize bleeding complications. Discussed with Dr. Malin. Will obtain U/S gallbladder tomorrow; if stones, will need cholecystectomy eventually. If no stones, may be able to avoid cholecystectomy if cystic duct open; will check in 2-[address] Li; would ideally be something reversable in 24-48 hrs if urgent surgery needed. Discharge Planning Will need [facility] for drain care; likely can be discharged home if she is comfortable after cholecystostomy tube placement Alexis Ovalles MD Nov 18, 2016 10:08
[2016-11-18] MEDS ORDERED: MIDAZOLAM HCL 2 MG/2 ML VIAL ONE ×2 (11:59)
--- NOTE | 2016-11-18 12:05 | PD.ONC.PN ---
Subjective Subjective Remarks Tmax 100F overnight. Patient resting in bed in nad. She just received pain pill and so she is feeling fatigued. Objective Data Date Time Temp Pulse Resp B/P (MAP) Pulse Ox O2 Delivery O2 Flow Rate FiO2 11/18/16 08:00 98.0 99 20 124/78 (93) 94 11/18/16 05:41 98.3 94 18 140/76 94 11/18/16 02:38 99.2 87 19 131/65 93 11/18/16 02:21 99.7 93 20 139/72 96 11/17/16 23:13 100.0 92 20 124/67 95 11/17/16 22:48 99.7 91 20 117/68 (84) 95 11/17/16 21:48 100.1 92 20 148/72 (97) 95 11/17/16 21:25 11/17/16 19:39 21 11/17/16 19:14 95 18 127/60 (82) 95 Room Air 11/17/16 18:55 88 18 142/82 (102) 96 Room Air 11/17/16 16:59 77 16 168/75 (106) 97 Room Air 11/17/16 13:40 20 11/17/16 12:43 68 16 171/74 (106) 97 Room Air 11/18/16 11/18/16 11/18/16 07:00 15:00 23:00 Intake Total 860 ml Balance 860 ml Result Diagram: 11/18/16 0638 11/18/16 0638 Laboratory Results Laboratory Tests Test 11/17/16 13:00 11/17/16 15:10 11/18/16 00:30 11/18/16 06:38 White Blood Count 10.8 TH/MM3 7.6 TH/MM3 Red Blood Count 2.50 MIL/MM3 3.75 MIL/MM3 Hemoglobin 8.2 GM/DL 11.6 GM/DL Hematocrit 24.6 % 34.8 % Mean Corpuscular Volume 98.4 FL 92.7 FL Mean Corpuscular Hemoglobin 32.9 PG 30.9 PG Mean Corpuscular Hemoglobin Concent 33.5 % 33.4 % Red Cell Distribution Width 16.7 % 18.5 % Platelet Count 70 TH/MM3 55 TH/MM3 Mean Platelet Volume 10.5 FL 8.8 FL Neutrophils (%) (Auto) 81.3 % 71.9 % Lymphocytes (%) (Auto) 6.3 % 9.9 % Monocytes (%) (Auto) 12.3 % 17.9 % Eosinophils (%) (Auto) 0.0 % 0.2 % Basophils (%) (Auto) 0.1 % 0.1 % Neutrophils # (Auto) 8.8 TH/MM3 5.4 TH/MM3 Lymphocytes # (Auto) 0.7 TH/MM3 0.7 TH/MM3 Monocytes # (Auto) 1.3 TH/MM3 1.4 TH/MM3 Eosinophils # (Auto) 0.0 TH/MM3 0.0 TH/MM3 Basophils # (Auto) 0.0 TH/MM3 0.0 TH/MM3 CBC Comment AUTO DIFF AUTO DIFF Differential Total Cells Counted 100 100 Neutrophils % (Manual) 71 % 69 % Band Neutrophils % 18 % 11 % Lymphocytes % 4 % 6 % Monocytes % 7 % 13 % Neutrophils # (Manual) 9.6 TH/MM3 6.1 TH/MM3 Differential Comment FINAL DIFF MANUAL FINAL DIFF MANUAL Platelet Estimate LOW LOW Platelet Morphology Comment NORMAL NORMAL Tear Drop Cells 1+ 1+ Ovalocytes 1+ 1+ Prothrombin Time 11.9 SEC 11.1 SEC Prothromb Time International Ratio 1.1 RATIO 1.0 RATIO Activated Partial Thromboplast Time 37.9 SEC 25.5 SEC Blood Urea Nitrogen 5 MG/DL 6 MG/DL Creatinine 0.58 MG/DL 0.60 MG/DL Random Glucose 118 MG/DL 102 MG/DL Total Protein 7.1 GM/DL Albumin 3.0 GM/DL Calcium Level 8.7 MG/DL 8.3 MG/DL Alkaline Phosphatase 190 U/L Aspartate Amino Transf (AST/SGOT) 50 U/L Alanine Aminotransferase (ALT/SGPT) 66 U/L Total Bilirubin 0.5 MG/DL Sodium Level 136 MEQ/L 137 MEQ/L Potassium Level 3.8 MEQ/L 3.5 MEQ/L Chloride Level 104 MEQ/L 104 MEQ/L Carbon Dioxide Level 22.9 MEQ/L 23.6 MEQ/L Anion Gap 9 MEQ/L 9 MEQ/L Estimat Glomerular Filtration Rate 105 ML/MIN 101 ML/MIN Lipase 254 U/L Urine Color LIGHT-YELLOW Urine Turbidity CLEAR Urine pH 6.5 Urine Specific [place] 1.006 Urine Protein NEG mg/dL Urine Glucose (UA) NEG mg/dL Urine Ketones NEG mg/dL Urine Occult Blood NEG Urine Nitrite NEG Urine Bilirubin NEG Urine Urobilinogen LESS THAN 2.0 MG/DL Urine Leukocyte Esterase MOD Urine RBC 1 /hpf Urine WBC 16 /hpf Urine Mucus FEW /lpf Microscopic Urinalysis Comment CULTURE INDICATED Basophils % 1 % Culture Results Microbiology Date/Time Source Procedure Growth Status 11/17/16 18:00 Blood Peripheral Aerobic Blood Culture - Preliminary NO GROWTH IN 1 DAY Resulted 11/17/16 18:00 Blood Peripheral Anaerobic Blood Culture - Preliminary NO GROWTH IN 1 DAY Resulted 11/17/16 17:55 Blood Peripheral Aerobic Blood Culture - Preliminary NO GROWTH IN 1 DAY Resulted 11/17/16 17:55 Blood Peripheral Anaerobic Blood Culture - Preliminary NO GROWTH IN 1 DAY Resulted 11/17/16 15:10 Urine Random Urine Urine Culture Pending Received Imaging Studies Last 24 hours Impressions Abdomen/Pelvis CT 11/17/16 1246 Signed Impressions: Service Date/Time: , November 17, 2016 16:09 - CONCLUSION: 1. Parenchymal liver disease with large patchy areas of heterogeneous hypodensity. Diffuse infiltrative process is suspected. 2. Thickened edematous gallbladder wall consistent with acute cholecystitis. 3. Free fluid in the pelvis. 4. Lower lumbar facet arthropathy. Darci Wilkins MD ADDENDUM: Hypodense region within the tail of pancreas measuring 3.3 cm in length by 1.8 cm in width represents the patient's known pancreatic carcinoma. Darci Wilkins MD Administered Medications Medications (Trade) Dose Ordered Sig/Tamanna Route PRN Reason Start Time Stop Time Status Last Admin Dose Admin Sodium Chloride 1,000 ml @ 100 mls/hr Q10H IV 11/17/16 17:48 11/17/16 22:15 Ondansetron HCl (Zofran Inj) 4 mg Q6H PRN IVP NAUSEA OR VOMITING 11/17/16 18:00 11/18/16 09:50 Senna/Docusate Sodium (Rozina-Colace) 1 tab BID PO 11/17/16 21:00 11/18/16 09:50 Hydromorphone HCl (Dilaudid Pf Inj) 0.5 mg Q4H PRN IV PUSH pain 5-10 11/17/16 19:00 11/18/16 09:51 Piperacillin Sod/ Tazobactam Sod 50 ml @ 100 mls/hr Q8H IV 11/18/16 03:00 11/18/16 09:51 Heparin Sodium/ Dextrose 250 ml @ 13 mls/hr TITRATE ONCE IV 11/17/16 22:30 11/18/16 17:43 11/18/16 01:34 Objective Remarks GENERAL: Middle aged female upright in bed in nad. SKIN: Warm and dry. HEAD: Normocephalic. EYES: No injection or drainage. NECK: Supple, trachea midline. CARDIOVASCULAR: Regular rate and rhythm RESPIRATORY: Breath sounds equal bilaterally. No accessory muscle use. GASTROINTESTINAL: Abdomen soft, mildly tender RUQ. NEUROLOGICAL: No obvious focal deficit. Awake, alert, and oriented x3. Assessment/Plan Problem List: (1) Acute cholecystitis ICD Codes: K81.0 - Acute cholecystitis; C78.7 - Secondary malignant neoplasm of liver and intrahepatic bile duct Status: Acute Plan: --surgery following --received Praxbind (reversal agent for Pradaxa on 11/17) in preparation for procedure cholecystostomy tube placement on 11/18 (2) Thrombocytopenia ICD Codes: D69.6 - Thrombocytopenia, unspecified Plan: --d/t chemotherapy --monitor (3) Pancreatic cancer metastasized to liver ICD Codes: C25.9 - Malignant neoplasm of pancreas, unspecified; C78.7 - Secondary malignant neoplasm of liver and intrahepatic bile duct Status: Acute Plan: --receiving receiving palliative chemotherapy with FOLFIRINOX at dose reduction. --treatment delayed in the past due to thrombocytopenia. (4) DVT (deep venous thrombosis) ICD Codes: I82.409 - Acute embolism and thrombosis of unspecified deep veins of unspecified lower extremity Status: Chronic Plan: --on heparin gtt --was on Pradaxa outpatient, was reversed for placement of raciel tube. Assessment 61y/o female with h/o pancreatic cancer and DVT admitted with cholecystitis. h/o Metastatic pancreatic cancer. Deep vein thrombosis and pulmonary embolism. Splenic vein occlusion. Chemotherapy-induced anemia. thrombocytopenia. Liver function elevation. Diarrhea controlled. Plan 1. continue heparin gtt. hold pre-procedure today 2. monitor CBC 3. monitor bilirubin 4. continue supportive care Attending Statement The exam, history, and the medical decision-making described in the above note were completed with the assistance of the mid-level provider. I reviewed and agree with the findings presented. I attest that I had a [id number] encounter with the patient on the same day, and personally performed and documented my assessment and findings in the medical record. Pt seen and examined in AM. Tolerated Praxbind well- on UFH until procedure. Discussed plan as coordinated by Dr. Ovalles, proceed with cholecystostomy tube, avoid cholecystectomy in light of her metastatic pancreatic cancer. Pt with recent dose of Pradaxa, Pradaxa reversed with Praxbind, started UFH given her h/o DVT/PE high risk for recurrent VTE off anticoagulation. UFH will minimize time off anticoagulant therapy. Monitor her response to treatment. Monitor labs, chemo held. Alert her med onc at [place] Dr. Olivia Sorto. Griselda Rocha Nov 18, 2016 12:05 Haydee Li MD Nov 18, 2016 17:21
--- NOTE | 2016-11-18 12:50 | PD.RAD ---
Post Procedure Progress Note Pre Procedure Diagnosis: (1) Acute cholecystitis Post Procedure Diagnosis: (1) Acute cholecystitis Procedure Date: Nov 18, 2016 Supervising Radiologist: Uvaldo Malin Proceduralist/Assist: Dania Lundberg RT(R)(), Ghislaine Giron RT(R) Anesthesia: Conscious Sedation Plan of Activity Patient to Unit: Nursing Unit Patient Condition: Good See PACS Report for procedural detail/treatment Drainage Procedure Procedure 1 Imaging Guidance: Fluoroscopy Procedure Type: Cholecystostomy Procedure: Placement Wolof: 7 Drainage: Saffell drainage Fluid Description: Cloudy, Bilious Uvaldo Malin MD Nov 18, 2016 12:50
--- NOTE | 2016-11-18 14:37 | RADRPT ---
EXAM DATE/TIME: 11/18/2016 11:52 [place] COMPARISON: No previous studies available for comparison. INDICATIONS : Patient presents with worsening anemia, cholecystitis and in need of a cholesytostomy tube. MEDICAL HISTORY : Carcinome pancreas Carcinoma hepatocellular SURGICAL HISTORY : None ENCOUNTER: Initial ACUITY: 2 days PAIN SCORE: 1/10 FLUORO TIME: 0.6 minutes IMAGE SERIES: 1 SEDATION TIME: 30 minutes CONTRAST: 5 cc Omnipaque (iohexol) 350 MEDICATION(S): 1.) 1 mg midazolam (Versed) IV 2.) 50 mcg fentanyl (Sublimaze) IV DEVICE(S): 1.) 7 [place] skater catheter PROCEDURE : 1. Ultrasound guided puncture of the gallbladder. 2. Percutaneous cholangiogram. 3. Percutaneous cholecystostomy tube placement. 4. Conscious sedation with continuous EKG and oximetry monitoring. The risks, benefits and alternatives to the procedure were explained and verbal and written consent w as obtained. The site was prepped in sterile fashion. Full sterile technique was used, including ca p, mask, sterile gloves and gown and a large sterile sheet. Hand hygiene and 2% chlorhexidine and/or betadine/alcohol prep was utilized per protocol for cutaneous antisepsis. Sterile gel and sterile p robe cover were utilized for ultrasound guidance. The skin and subcutaneous tissues were infiltrated with local anesthetic solution. With ultrasound and fluoroscopic guidance the gallbladder was punctured with a micropuncture set and a 4 [place] dilator was placed. Injection of positive contrast demonstrates position within the gallb ladder. A 0.035 guidewire was placed within the gallbladder lumen and dilatation was performed to ac cept the prescribed catheter. Conscious sedation was performed with the prescribed dosages and duration as above in the presence of an independent trained radiology nurse to assist in the monitoring of the patient. EKG and oximetry remained stable throughout the procedure. The patient tolerated the procedure well and there were n o complications. The patient was sent to post anesthesia recovery in stable condition. CONCLUSION: Uncomplicated percutaneous cholecystostomy as above. Uvaldo Malin MD on November 18, 2016 at 14:34 Board Certified Radiologist. This report was verified electronically.
[2016-11-18 16:00] VITALS: BP 121/76; PULSE 88; RESP 16; TEMP 97.6; O2SAT 93
[2016-11-18 17:04] LABS: APTT (PATIENT) 26.9 SEC (24.3-30.1)
[2016-11-18] MEDS ORDERED: ACETAMINOPHEN/HYDROcodone 325 MG/7.5 MG TAB PO PRN ×2 (17:45)
[2016-11-18 21:57] VITALS: BP 117/66; PULSE 83; RESP 16; TEMP 98.5; O2SAT 96
[2016-11-19] MEDS: PIPERACIL-TAZO 3.375 GM PREMIX 50 ML IV SCH ×2 (01:03→11:00)
[2016-11-19 01:07] VITALS: BP 114/67; PULSE 77; RESP 16; TEMP 98.4; O2SAT 93
[2016-11-19 05:34] VITALS: BP 116/63; PULSE 74; RESP 16; TEMP 98.3; O2SAT 95
[2016-11-19 06:52] LABS: AUTOMATED NEUTROPHIL # 3.3 TH/MM3 (1.8-7.7); BASOPHIL % 0.2 % (0.0-2.0); EOSINOPHIL % 0.8 % (0.0-4.0); HEMATOCRIT 32.9 % (35.0-46.0); LYMPH % 12.4 % (9.0-44.0); LYMPHOCYTE # 0.6 TH/MM3 (1.0-4.8); MEAN CELL VOLUME 93.9 FL (80.0-100.0); MEAN CORPUSCULAR HEMOGLOBIN 31.4 PG (27.0-34.0); MEAN CORPUSCULAR HGB CONC 33.5 % (32.0-36.0); MONO % 17.2 % (0.0-8.0); NEUT % 69.4 % (16.0-70.0); PLATELET COUNT 60 TH/MM3 (150-450); RED CELL DISTRIBUTION WIDTH 18.9 % (11.6-17.2); WHITE BLOOD COUNT 4.8 TH/MM3 (4.0-11.0)
[2016-11-19 06:56] LABS: HEMO FLAGS AUTO DIFF
[2016-11-19 07:37] LABS: POTASSIUM 3.5 MEQ/L (3.5-5.1)
[2016-11-19 07:45] VITALS: BP 133/71; PULSE 78; RESP 18; TEMP 97.9; O2SAT 95
[2016-11-19] MEDS: SODIUM CHLORIDE 0.9% FLUSH 10 ML FLUSH IV FLUSH SCH (07:48)
[2016-11-19] MEDS: DOCUSATE SODIUM 50 MG/SENNA 8.6 MG TAB PO SCH (07:48)
[2016-11-19] MEDS: SODIUM CHLOR 0.9% 1000 ML INJ 1,000 ML IV SCH (07:48)
[2016-11-19 08:22] LABS: ACANTHOCYTES OCC (NORMAL); BANDS 23 % (0-6); BASOPHILS 1 % (0-2); EOSINOPHILS 3 % (0-4); NEUTROPHIL # MANUAL DIFF 3.9 TH/MM3 (1.8-7.7); OVALOCYTES 1+ (NORMAL); PLATELET ESTIMATE SMEAR LOW (NORMAL); PLATELET MORPHOLOGY NORMAL (NORMAL); POLYS (SEG NEUTROPHILS) 58 % (16-70); WBC DIFF SAMPLE 100
--- NOTE | 2016-11-19 08:22 | HHI.PR ---
Subjective Remarks Ambulating in the room, has pain at the surgical site. Drain in place with serosanguineous OP. No fever or chills. No n/v/d/c. Keeps down food. Had a loose BM in the morning. Feels comfortable to go home today. Objective Vitals Vital Signs Date Time Temp Pulse Resp B/P (MAP) Pulse Ox O2 Delivery O2 Flow Rate FiO2 11/19/16 07:45 97.9 78 18 133/71 (91) 95 11/19/16 05:34 98.3 74 16 116/63 (80) 95 11/19/16 01:07 98.4 77 16 114/67 (83) 93 11/18/16 21:57 98.5 83 16 117/66 (83) 96 11/18/16 16:00 97.6 88 16 121/76 (91) 93 I/O 11/18/16 11/18/16 11/18/16 11/19/16 11/19/16 11/19/16 07:00 15:00 23:00 07:00 15:00 23:00 Intake Total 860 ml Balance 860 ml Packed Cells 800 ml Blood Product IV Normal Saline Flush 60 ml Result Diagram: 11/19/16 0546 11/19/16 0546 Imaging Last Impressions Percutaneous Cholangiogram 11/18/16 0000 Signed Impressions: Service Date/Time: Friday, November 18, 2016 11:52 - CONCLUSION: Uncomplicated percutaneous cholecystostomy as above. Uvaldo Malin MD Abdomen/Pelvis CT 11/17/16 1246 Signed Impressions: Service Date/Time: November 16:09 - CONCLUSION: 1. Parenchymal liver disease with large patchy areas of heterogeneous hypodensity. Diffuse infiltrative process is suspected. 2. Thickened edematous gallbladder wall consistent with acute cholecystitis. 3. Free fluid in the pelvis. 4. Lower lumbar facet arthropathy. Darci Wilkins MD ADDENDUM: Hypodense region within the tail of pancreas measuring 3.3 cm in length by 1.8 cm in width represents the patient's known pancreatic carcinoma. Darci Wilkins MD Objective Remarks GENERAL: Pleasant 61 yo female, appears in NAD, A&Ox3 CARDIOVASCULAR: Regular rate and rhythm without murmurs, gallops, or rubs. RESPIRATORY: Breath sounds equal bilaterally. No accessory muscle use. GASTROINTESTINAL: Abdomen soft, nondistended. Mild tenderness at the drain site . Drain in place, with serosanguineous OP. Dressing c/d/i MUSCULOSKELETAL: No cyanosis, or edema. SKIN: Warm and dry. NEURO: No focal neurological deficits. Procedures cholecystostomy tube placement by IR 11/18/16 A/P Problem List: (1) Pancreatic cancer metastasized to liver ICD Code: C25.9 - Malignant neoplasm of pancreas, unspecified; C78.7 - Secondary malignant neoplasm of liver and intrahepatic bile duct Status: Acute (2) Acute cholecystitis ICD Code: K81.0 - Acute cholecystitis; C78.7 - Secondary malignant neoplasm of liver and intrahepatic bile duct Status: Acute Assessment and Plan 61-year-old female admitted secondary to acute cholecystitis and presence of pancreatic cancer with metastasis, on active chemotherapy. Acute cholecystitis Continue as needed pain treatments Zosyn every 8 hours Follow CBC Follow CMP Surgery consulted GI consulted Surgery consulted. Pradaxa reversal. Plan for OR by gen surgery PRN zofran PRN pain treatments Monitor vitals S/p Cholecystostomy tube 11/18/16, medically necessary Plan for U/S gallbladder if stones, will need cholecystectomy eventually per surgery. If no stones, may be able to avoid cholecystectomy if cystic duct open ; will check in 2-[address] Li Hypercoagulability History of blood clots At baseline she is on Pradaxa Hold Pradaxa for stenting procedure Consider heparin bridge if surgery ends up being a necessary option Pancreatic Cancer Oncology consulted Hold chemo for now History of brain aneurysm Had clipping procedure previously Follow clinically DVT prophylaxis SCDs, resume pradaxa when ok per surgeon/Dr Li Will need [facility] for drain care; likely can be discharged home if she is comfortable after cholecystostomy tube placement POss DC later today after US done and if cleared by surgery oJi Woods MD Nov 19, 2016 08:22
[2016-11-19 08:23] LABS: SCAN/DIFF FINAL DIFF MANUAL; TEARDROP RBCS 1+ (NORMAL); TOXIC GRANULATION 1+ (NORMAL)
[2016-11-19] MEDS ORDERED: METR-1 PO (10:11)
[2016-11-19] MEDS ORDERED: CIPR500T2 PO (10:11)
[2016-11-19] MEDS ORDERED: NORC5TAB PO (10:11)
--- NOTE | 2016-11-19 10:11 | HHI.DS ---
Discharge Summary Admission Date Nov 17, 2016 at 17:39 Discharge Date: Nov 19, 2016 Admitting Diagnosis worsening anemia, cholechystitis, metastatic pancreatic cancer (1) Pancreatic cancer metastasized to liver ICD Code: C25.9 - Malignant neoplasm of pancreas, unspecified; C78.7 - Secondary malignant neoplasm of liver and intrahepatic bile duct Status: Acute (2) Acute cholecystitis ICD Code: K81.0 - Acute cholecystitis; C78.7 - Secondary malignant neoplasm of liver and intrahepatic bile duct Status: Acute Procedures cholecystostomy tube placement by IR 11/18/16 Brief History - From Admission Mrs. Sharma is a 61-year-old female. She is here after having 24 hours of abdominal pain. Right upper quadrant pain is present and she had nausea and vomiting. She has metastatic pancreatic cancer with metastasis to the right hip and liver. She is on chemotherapy for this but reports that she doesn't typically have nausea or vomiting with her chemotherapy thus far. So, but nausea and vomiting was atypical for her. She informed her oncologist and they sent her to the ER. Imaging in the ER shows evidence of acute cholecystitis. She is not a good candidate for surgery, both because of her immunocompromised state and due to the metastatic disease in the area of the liver. Plan for now is stenting with a backup plan for surgery if needed. Patient denies any fevers she has no signs of sepsis tonight. No other complaints. CBC/BMP: 11/19/16 0546 11/19/16 0546 Significant Findings Laboratory Tests Test 11/17/16 13:00 11/17/16 15:10 11/18/16 00:30 11/18/16 06:38 Red Blood Count 2.50 MIL/MM3 (4.00-5.30) 3.75 MIL/MM3 (4.00-5.30) Hemoglobin 8.2 GM/DL (11.6-15.3) Hematocrit 24.6 % (35.0-46.0) 34.8 % (35.0-46.0) Platelet Count 70 TH/MM3 (150-450) 55 TH/MM3 (150-450) Neutrophils (%) (Auto) 81.3 % (16.0-70.0) 71.9 % (16.0-70.0) Lymphocytes (%) (Auto) 6.3 % (9.0-44.0) Monocytes (%) (Auto) 12.3 % (0.0-8.0) 17.9 % (0.0-8.0) Neutrophils # (Auto) 8.8 TH/MM3 (1.8-7.7) Lymphocytes # (Auto) 0.7 TH/MM3 (1.0-4.8) 0.7 TH/MM3 (1.0-4.8) Monocytes # (Auto) 1.3 TH/MM3 (0-0.9) 1.4 TH/MM3 (0-0.9) Neutrophils % (Manual) 71 % (16-70) Band Neutrophils % 18 % (0-6) 11 % (0-6) Lymphocytes % 4 % (9-44) 6 % (9-44) Neutrophils # (Manual) 9.6 TH/MM3 (1.8-7.7) Platelet Estimate LOW (NORMAL) LOW (NORMAL) Tear Drop Cells 1+ (NORMAL) 1+ (NORMAL) Ovalocytes 1+ (NORMAL) 1+ (NORMAL) Prothrombin Time 11.9 SEC (9.8-11.6) Activated Partial Thromboplast Time 37.9 SEC (24.3-30.1) Blood Urea Nitrogen 5 MG/DL (7-18) 6 MG/DL (7-18) Random Glucose 118 MG/DL (74-106) Albumin 3.0 GM/DL (3.4-5.0) Alkaline Phosphatase 190 U/L (45-117) Aspartate Amino Transf (AST/SGOT) 50 U/L (15-37) Alanine Aminotransferase (ALT/SGPT) 66 U/L (10-53) Urine Leukocyte Esterase MOD (NEG) Urine WBC 16 /hpf (0-5) Urine Mucus FEW /lpf (OCC) Red Cell Distribution Width 18.5 % (11.6-17.2) Monocytes % 13 % (0-8) Calcium Level 8.3 MG/DL (8.5-10.1) Test 11/18/16 16:10 11/19/16 05:46 Red Blood Count 3.50 MIL/MM3 (4.00-5.30) Hemoglobin 11.0 GM/DL (11.6-15.3) Hematocrit 32.9 % (35.0-46.0) Red Cell Distribution Width 18.9 % (11.6-17.2) Platelet Count 60 TH/MM3 (150-450) Monocytes (%) (Auto) 17.2 % (0.0-8.0) Lymphocytes # (Auto) 0.6 TH/MM3 (1.0-4.8) Band Neutrophils % 23 % (0-6) Lymphocytes % 8 % (9-44) Toxic Granulation 1+ (NORMAL) Platelet Estimate LOW (NORMAL) Tear Drop Cells 1+ (NORMAL) Ovalocytes 1+ (NORMAL) Acanthocytes OCC (NORMAL) Blood Urea Nitrogen 5 MG/DL (7-18) Calcium Level 7.7 MG/DL (8.5-10.1) Chloride Level 110 MEQ/L (98-107) Imaging Last Impressions Percutaneous Cholangiogram 11/18/16 0000 Signed Impressions: Service Date/Time: Friday, November 18, 2016 11:52 - CONCLUSION: Uncomplicated percutaneous cholecystostomy as above. Uvaldo Malin MD Abdomen/Pelvis CT 11/17/16 1246 Signed Impressions: Service Date/Time: November 16:09 - CONCLUSION: 1. Parenchymal liver disease with large patchy areas of heterogeneous hypodensity. Diffuse infiltrative process is suspected. 2. Thickened edematous gallbladder wall consistent with acute cholecystitis. 3. Free fluid in the pelvis. 4. Lower lumbar facet arthropathy. Darci Wilkins MD ADDENDUM: Hypodense region within the tail of pancreas measuring 3.3 cm in length by 1.8 cm in width represents the patient's known pancreatic carcinoma. Darci Wilkins MD PE at Discharge GENERAL: Pleasant 61 yo female, appears in NAD, A&Ox3 CARDIOVASCULAR: Regular rate and rhythm without murmurs, gallops, or rubs. RESPIRATORY: Breath sounds equal bilaterally. No accessory muscle use. GASTROINTESTINAL: Abdomen soft, nondistended. Mild diffuse tenderness , however more prominent on RUQ. MUSCULOSKELETAL: No cyanosis, or edema. SKIN: Warm and dry. NEURO: No focal neurological deficitis. Hospital Course 61-year-old female admitted secondary to acute cholecystitis and presence of pancreatic cancer with metastasis, on active chemotherapy. Patient with acute cholecystitis surgery consulted ,, hem onc Dr Li her onc dr also consulted. patient received pradaxa reversal. patient with thrombocytopenia. S/ p Cholecystostomy tube 11/18/16, medically necessary. U/S gallbladder no stones,may be able to avoid cholecystectomy if cystic duct open; will check in 2-3 weeks per gen surg. Patient imprpved she was discharged with raciel tube home in stable condition to follow up as OP with PCP and consultants. Acute cholecystitis Continue as needed pain treatments Zosyn every 8 hours, change to PO abx at DC. Follow CBC Follow CMP Surgery consulted GI consulted Surgery consulted. Pradaxa reversal. Plan for OR by gen surgery PRN zofran PRN pain treatments Monitor vitals S/p Cholecystostomy tube 11/18/16, medically necessary Plan for U/S gallbladder if stones, will need cholecystectomy eventually per surgery. If no stones, may be able to avoid cholecystectomy if cystic duct open ; will check in 2-[address] Li, her oncology Dr Hypercoagulability History of blood clots At baseline she is on Pradaxa Hold Pradaxa for stenting procedure Consider heparin bridge if surgery ends up being a necessary option Pancreatic Cancer Oncology consulted Hold chemo for now History of brain aneurysm Had clipping procedure previously Follow clinically DVT prophylaxis SCDs, resume pradaxa when ok per surgeon/Dr Li Pt Condition on Discharge: Stable Discharge Disposition: Disch w/ Home Health Serv Discharge Time: > 30 minutes Discharge Instructions DIET: Follow Instructions for: As Tolerated, No Restrictions Activities you can perform: Regular-No Restrictions Follow up Referrals: Oncology - 11/21/16 PCP Follow-up - 2-3 Days Surgical - 11/22/16 with Alexis Ovalles MD New Medications: Ciprofloxacin (Ciprofloxacin) 500 Mg Tab 500 MG PO BID for Infection for 7 Days, #14 TAB 0 Refills Enoxaparin Inj (Lovenox Inj) 80 mg/0.8 ML Syr 80 MG SQ BID for Blood Clot Prevention, #30 SYRINGE 0 Refills Hydrocodone-Acetaminophen (Lamoni) 5-325 mg Tab 1-2 TAB PO Q6H PRN for PAIN, #30 TAB 0 Refills Metronidazole (Flagyl) 500 Mg Tab 500 MG PO TID for Infection for 7 Days, TAB 0 Refills Continued Medications: Ascorbic Acid ER (Vitamin C ER) 500 Mg Rukhsana 500 MG PO for Nutritional Supplement, TAB 0 Refills Dronabinol (Dronabinol) 5 Mg Cap 5 MG PO BID, CAP 0 Refills Ferrous Sulfate (Ferrous Sulfate) 325 Mg (65 Mg Iron) Tablet 325 MG PO DAILY for Nutritional Supplement, TAB 0 Refills Irinotecan HCl (Irinotecan) 40 Mg/2 Ml Inj Unknown Dose IV DIRECTED Leucovorin Inj (Leucovorin Inj) 50 Mg Inj Unknown Dose IV DIRECTED Multiple Vitamin (Multiple Vitamin) 1 Tab 1 TAB PO DAILY for Nutritional Supplement, TAB 0 Refills Ondansetron (Zofran) 4 Mg Tab 4 MG PO Q6HR PRN for NAUSEA OR VOMITING, TAB 0 Refills Oxaliplatin Inj (Oxaliplatin Inj) 50 Mg/10 Ml (5 Mg/Ml) Inj Unknown Dose IV DIRECTED Promethazine (Phenergan) 25 Mg Tablet 25 MG PO Q6H PRN for NAUSEA OR VOMITING, TAB 0 Refills Discontinued Medications: Dabigatran (Pradaxa) 150 Mg Cap 150 MG PO BID for Blood Clot Prevention, CAP 0 Refills Joi Woods MD Nov 19, 2016 10:11
--- NOTE | 2016-11-19 10:36 | HHI.DS ---
Discharge Summary Admission Date Nov 17, 2016 at 17:39 Discharge Date: Nov 19, 2016 Admitting Diagnosis worsening anemia, cholechystitis, metastatic pancreatic cancer (1) Pancreatic cancer metastasized to liver ICD Code: C25.9 - Malignant neoplasm of pancreas, unspecified; C78.7 - Secondary malignant neoplasm of liver and intrahepatic bile duct Status: Acute (2) Acute cholecystitis ICD Code: K81.0 - Acute cholecystitis; C78.7 - Secondary malignant neoplasm of liver and intrahepatic bile duct Status: Acute Procedures cholecystostomy tube placement by IR 11/18/16 Brief History - From Admission Mrs. Sharma is a 61-year-old female. She is here after having 24 hours of abdominal pain. Right upper quadrant pain is present and she had nausea and vomiting. She has metastatic pancreatic cancer with metastasis to the right hip and liver. She is on chemotherapy for this but reports that she doesn't typically have nausea or vomiting with her chemotherapy thus far. So, but nausea and vomiting was atypical for her. She informed her oncologist and they sent her to the ER. Imaging in the ER shows evidence of acute cholecystitis. She is not a good candidate for surgery, both because of her immunocompromised state and due to the metastatic disease in the area of the liver. Plan for now is stenting with a backup plan for surgery if needed. Patient denies any fevers she has no signs of sepsis tonight. No other complaints. CBC/BMP: 11/19/16 0546 11/19/16 0546 Significant Findings Laboratory Tests Test 11/17/16 13:00 11/17/16 15:10 11/18/16 00:30 11/18/16 06:38 Red Blood Count 2.50 MIL/MM3 (4.00-5.30) 3.75 MIL/MM3 (4.00-5.30) Hemoglobin 8.2 GM/DL (11.6-15.3) Hematocrit 24.6 % (35.0-46.0) 34.8 % (35.0-46.0) Platelet Count 70 TH/MM3 (150-450) 55 TH/MM3 (150-450) Neutrophils (%) (Auto) 81.3 % (16.0-70.0) 71.9 % (16.0-70.0) Lymphocytes (%) (Auto) 6.3 % (9.0-44.0) Monocytes (%) (Auto) 12.3 % (0.0-8.0) 17.9 % (0.0-8.0) Neutrophils # (Auto) 8.8 TH/MM3 (1.8-7.7) Lymphocytes # (Auto) 0.7 TH/MM3 (1.0-4.8) 0.7 TH/MM3 (1.0-4.8) Monocytes # (Auto) 1.3 TH/MM3 (0-0.9) 1.4 TH/MM3 (0-0.9) Neutrophils % (Manual) 71 % (16-70) Band Neutrophils % 18 % (0-6) 11 % (0-6) Lymphocytes % 4 % (9-44) 6 % (9-44) Neutrophils # (Manual) 9.6 TH/MM3 (1.8-7.7) Platelet Estimate LOW (NORMAL) LOW (NORMAL) Tear Drop Cells 1+ (NORMAL) 1+ (NORMAL) Ovalocytes 1+ (NORMAL) 1+ (NORMAL) Prothrombin Time 11.9 SEC (9.8-11.6) Activated Partial Thromboplast Time 37.9 SEC (24.3-30.1) Blood Urea Nitrogen 5 MG/DL (7-18) 6 MG/DL (7-18) Random Glucose 118 MG/DL (74-106) Albumin 3.0 GM/DL (3.4-5.0) Alkaline Phosphatase 190 U/L (45-117) Aspartate Amino Transf (AST/SGOT) 50 U/L (15-37) Alanine Aminotransferase (ALT/SGPT) 66 U/L (10-53) Urine Leukocyte Esterase MOD (NEG) Urine WBC 16 /hpf (0-5) Urine Mucus FEW /lpf (OCC) Red Cell Distribution Width 18.5 % (11.6-17.2) Monocytes % 13 % (0-8) Calcium Level 8.3 MG/DL (8.5-10.1) Test 11/18/16 16:10 11/19/16 05:46 Red Blood Count 3.50 MIL/MM3 (4.00-5.30) Hemoglobin 11.0 GM/DL (11.6-15.3) Hematocrit 32.9 % (35.0-46.0) Red Cell Distribution Width 18.9 % (11.6-17.2) Platelet Count 60 TH/MM3 (150-450) Monocytes (%) (Auto) 17.2 % (0.0-8.0) Lymphocytes # (Auto) 0.6 TH/MM3 (1.0-4.8) Band Neutrophils % 23 % (0-6) Lymphocytes % 8 % (9-44) Toxic Granulation 1+ (NORMAL) Platelet Estimate LOW (NORMAL) Tear Drop Cells 1+ (NORMAL) Ovalocytes 1+ (NORMAL) Acanthocytes OCC (NORMAL) Blood Urea Nitrogen 5 MG/DL (7-18) Calcium Level 7.7 MG/DL (8.5-10.1) Chloride Level 110 MEQ/L (98-107) PE at Discharge GENERAL: Pleasant 61 yo female, appears in NAD, A&Ox3 CARDIOVASCULAR: Regular rate and rhythm without murmurs, gallops, or rubs. RESPIRATORY: Breath sounds equal bilaterally. No accessory muscle use. GASTROINTESTINAL: Abdomen soft, nondistended. Mild tenderness at the drain site . Drain in place, with serosanguineous OP. Dressing c/d/i MUSCULOSKELETAL: No cyanosis, or edema. SKIN: Warm and dry. NEURO: No focal neurological deficits. Pt Condition on Discharge: Stable Discharge Disposition: Disch w/ Home Health Serv Discharge Instructions DIET: Follow Instructions for: As Tolerated, No Restrictions Activities you can perform: Regular-No Restrictions Joi Woods MD Nov 19, 2016 10:36
--- NOTE | 2016-11-19 10:37 | HHI.FF ---
Face to Face Verification Diagnosis: (1) Thrombocytopenia (2) DVT (deep venous thrombosis) (3) Acute cholecystitis (4) Pancreatic cancer metastasized to liver Physical Therapy Order: Evaluate and Treat Home Health Nursing Order: Medical education Signs/symptoms of disease process Medication education-adverse effect Nursing assessment with vital signs Instructions: nurses to educate regarding raciel tube I have seen patient Jessica Sharma on 11/19/16. My clinical findings support the need for the requested home health care services because: Ltd mobility - disease progression Patient has SOB I certify that my clinical findings support that this patient is homebound because: Post-op weakness Joi Woods MD Nov 19, 2016 10:37
[2016-11-19 12:16] VITALS: BP 137/67; PULSE 76; RESP 18; TEMP 98.2; O2SAT 97
--- NOTE | 2016-11-19 13:36 | PD.ONC.PN ---
Subjective Subjective Remarks Afebrile overnight. Patient feeling well today. still some occasional pain at cholecystostomy tube site. hoping to go home today. Objective Data Date Time Temp Pulse Resp B/P (MAP) Pulse Ox O2 Delivery O2 Flow Rate FiO2 11/19/16 12:16 98.2 76 18 137/67 (90) 97 11/19/16 07:45 97.9 78 18 133/71 (91) 95 11/19/16 05:34 98.3 74 16 116/63 (80) 95 11/19/16 01:07 98.4 77 16 114/67 (83) 93 11/18/16 21:57 98.5 83 16 117/66 (83) 96 11/18/16 16:00 97.6 88 16 121/76 (91) 93 11/19/16 11/19/16 11/19/16 07:00 15:00 23:00 Intake Total 240 ml Balance 240 ml Result Diagram: 11/19/16 0546 11/19/16 0546 Laboratory Results Laboratory Tests Test 11/18/16 16:10 11/19/16 05:46 Activated Partial Thromboplast Time 26.9 SEC White Blood Count 4.8 TH/MM3 Red Blood Count 3.50 MIL/MM3 Hemoglobin 11.0 GM/DL Hematocrit 32.9 % Mean Corpuscular Volume 93.9 FL Mean Corpuscular Hemoglobin 31.4 PG Mean Corpuscular Hemoglobin Concent 33.5 % Red Cell Distribution Width 18.9 % Platelet Count 60 TH/MM3 Mean Platelet Volume 9.4 FL Neutrophils (%) (Auto) 69.4 % Lymphocytes (%) (Auto) 12.4 % Monocytes (%) (Auto) 17.2 % Eosinophils (%) (Auto) 0.8 % Basophils (%) (Auto) 0.2 % Neutrophils # (Auto) 3.3 TH/MM3 Lymphocytes # (Auto) 0.6 TH/MM3 Monocytes # (Auto) 0.8 TH/MM3 Eosinophils # (Auto) 0.0 TH/MM3 Basophils # (Auto) 0.0 TH/MM3 CBC Comment AUTO DIFF Differential Total Cells Counted 100 Neutrophils % (Manual) 58 % Band Neutrophils % 23 % Lymphocytes % 8 % Monocytes % 7 % Eosinophils % 3 % Basophils % 1 % Neutrophils # (Manual) 3.9 TH/MM3 Differential Comment FINAL DIFF MANUAL Toxic Granulation 1+ Platelet Estimate LOW Platelet Morphology Comment NORMAL Tear Drop Cells 1+ Ovalocytes 1+ Acanthocytes OCC Blood Urea Nitrogen 5 MG/DL Creatinine 0.65 MG/DL Random Glucose 77 MG/DL Calcium Level 7.7 MG/DL Sodium Level 141 MEQ/L Potassium Level 3.5 MEQ/L Chloride Level 110 MEQ/L Carbon Dioxide Level 24.0 MEQ/L Anion Gap 7 MEQ/L Estimat Glomerular Filtration Rate 92 ML/MIN Culture Results Microbiology Date/Time Source Procedure Growth Status 11/17/16 18:00 Blood Peripheral Aerobic Blood Culture - Preliminary NO GROWTH IN 2 DAYS Resulted 11/17/16 18:00 Blood Peripheral Anaerobic Blood Culture - Preliminary NO GROWTH IN 2 DAYS Resulted 11/17/16 17:55 Blood Peripheral Aerobic Blood Culture - Preliminary NO GROWTH IN 2 DAYS Resulted 11/17/16 17:55 Blood Peripheral Anaerobic Blood Culture - Preliminary NO GROWTH IN 2 DAYS Resulted 11/17/16 15:10 Urine Random Urine Urine Culture - Final 50-100,000 CFU/ML MIXED ANGELA... Complete Administered Medications Medications (Trade) Dose Ordered Sig/Tamanna Route PRN Reason Start Time Stop Time Status Last Admin Dose Admin Sodium Chloride 1,000 ml @ 100 mls/hr Q10H IV 11/17/16 17:48 11/19/16 07:48 Ondansetron HCl (Zofran Inj) 4 mg Q6H PRN IVP NAUSEA OR VOMITING 11/17/16 18:00 11/18/16 09:50 Senna/Docusate Sodium (Rozina-Colace) 1 tab BID PO 11/17/16 21:00 11/18/16 09:50 Hydromorphone HCl (Dilaudid Pf Inj) 0.5 mg Q4H PRN IV PUSH pain 5-10 11/17/16 19:00 11/18/16 09:51 Piperacillin Sod/ Tazobactam Sod 50 ml @ 100 mls/hr Q8H IV 11/18/16 03:00 11/19/16 01:03 Objective Remarks GENERAL: Pleasant middle aged female sitting up in bed in nad. SKIN: Warm and dry. HEAD: Normocephalic. EYES: No injection or drainage. NECK: Supple, trachea midline. CARDIOVASCULAR: Regular rate and rhythm RESPIRATORY: Breath sounds equal bilaterally. No accessory muscle use. GASTROINTESTINAL: Abdomen soft, RUQ tenderness, nondistended. -raciel drain in place with clear red drainage. EXTREMITIES: No cyanosis NEUROLOGICAL: awake and alert, normal speech. Assessment/Plan Problem List: (1) DVT (deep venous thrombosis) ICD Codes: I82.409 - Acute embolism and thrombosis of unspecified deep veins of unspecified lower extremity Status: Chronic Plan: 11/19: start Lovenox 80mg SQ q 12. ok to d/c home on Lovenox. --was on Pradaxa outpatient, was reversed for placement of raciel tube. (2) Acute cholecystitis ICD Codes: K81.0 - Acute cholecystitis; C78.7 - Secondary malignant neoplasm of liver and intrahepatic bile duct Status: Acute Plan: --surgery following --received Praxbind (reversal agent for Pradaxa on 11/17) in preparation for procedure cholecystostomy tube placement on 11/18 (3) Thrombocytopenia ICD Codes: D69.6 - Thrombocytopenia, unspecified Plan: --d/t chemotherapy --monitor (4) Pancreatic cancer metastasized to liver ICD Codes: C25.9 - Malignant neoplasm of pancreas, unspecified; C78.7 - Secondary malignant neoplasm of liver and intrahepatic bile duct Status: Acute Plan: --receiving receiving palliative chemotherapy with FOLFIRINOX at dose reduction. --treatment delayed in the past due to thrombocytopenia. Assessment 61y/o female with h/o pancreatic cancer and DVT admitted with cholecystitis. h/o Metastatic pancreatic cancer. Deep vein thrombosis and pulmonary embolism. Splenic vein occlusion. Chemotherapy-induced anemia. thrombocytopenia. Liver function elevation. Diarrhea controlled. Attending Statement The exam, history, and the medical decision-making described in the above note were completed with the assistance of the mid-level provider. I reviewed and agree with the findings presented. I attest that I had a [id number] encounter with the patient on the same day, and personally performed and documented my assessment and findings in the medical record. linda feeling much better. I am going home soon. has GB drain tube. surgery later on. ok to d/c Griselda Rocha Nov 19, 2016 13:35 Arthur Lazar MD Nov 19, 2016 19:27
[2016-11-19] MEDS ORDERED: ENOXAPARIN SODIUM 80 MG/0.8 ML SYRINGE SQ SCH ×2 (14:00→18:15)
[2016-11-19] MEDS ORDERED: ENOX80P SQ (14:05)
--- NOTE | 2016-11-19 16:32 | RADRPT ---
EXAM DATE/TIME: 11/19/2016 15:49 [facility] COMPARISON: CT ABDOMEN & PELVIS W CONTRAST, November 17, 2016, 16:09. INDICATIONS : Right upper quadrant pain. MEDICAL HISTORY : Carcinoma, pancreas. Carcinoma, hepatocellular. Anticoagulant therapy. Gall bladder disease. Nause a. Vomiting. Weight loss. Right hip cancer. Chemotherapy. Pulmonary embolism. Deep vein thrombosis. SURGICAL HISTORY : Tonsillectomy. Aneurysm clip. ENCOUNTER: Initial ACUITY: 1 day PAIN SCORE: 4/10 LOCATION: Right upper quadrant MEASUREMENTS: LIVER: 14.3 cm length COMMON DUCT: 3 mm RIGHT KIDNEY: 10.1 x 4.5 x 5.0 cm FINDINGS: Multiple hepatic masses are identified characteristic of metastatic disease in this patient with know n pancreatic carcinoma. The pancreas is not visualized secondary to overlying bowel gas. Biliary drai nage catheters in place within the gallbladder. The gallbladder is decompressed. The right kidney is unremarkable. CONCLUSION: 1. Multiple hepatic metastasis 2. Percutaneous cholecystostomy with decompressed gallbladder Uvaldo Malin MD on November 19, 2016 at 16:27 Board Certified Radiologist. This report was verified electronically.
[2016-11-20] MEDS ORDERED: ENOXAPARIN SODIUM 80 MG/0.8 ML SYRINGE SQ SCH (02:00)
--- NOTE | 2016-11-21 06:00 | MB ---
cc: BJ OVALLES M.D., PETER C. MD DEVERAS,REJI Mclaughlin M.D. DATE OF CONSULTATION November 17, 2016 NOTE: This is a second dictation. REFERRING PHYSICIAN Dr. Guy Haque CHIEF COMPLAINT Dr. Haque requested consultation for Mrs. Sharma regarding metastatic pancreatic cancer, admitted with the cholecystitis. HISTORY OF PRESENT ILLNESS Mrs. Sharma is a 61-year-old woman initially from [place], [place]. She moved to the [facility]. She is seen for metastatic pancreatic cancer. She has stable disease on Folfirinox every two weeks. Her last chemotherapy required a dose delay of a week due to thrombocytopenia. She was seen in clinic yesterday. She was thrombocytopenic with plans to resume chemotherapy next week. During the clinic consultation she reported having nausea that morning. She vomited once. She felt better after vomiting. In the next 24 hours her vomiting continued. She had worsening abdominal pain. Ultimately she presented to the emergency room for evaluation. Laboratory evaluation shows liver function elevation. She was still thrombocytopenic with a platelet count of 78,000, hemoglobin 8.2 which is decreased from the day prior. CT scan of the abdomen showed liver metastatic disease, hyperdense lesion at the tail of the pancreas and thickened, edematous gallbladder consistent with acute cholecystitis. The case was discussed early on with Dr. Haque. We agreed to proceed with supportive transfusion in light of the decrease in hemoglobin. She had taken her chronic anticoagulant Pradaxa in the morning of her presentation. She has a history of deep vein thromboses and pulmonary embolism. She was on low-molecular weight heparin until being switched to Pradaxa. She denies any overt bleeding. No melena or bright red blood per rectum. She had chemotherapy to account for the anemia. She denies any fevers, chills or night sweats. She has the abdominal pain and nausea, vomiting that prompted her to come in. Hematology/Oncology is consulted for pancreatic cancer at the tail of pancreas associated with liver and bony metastatic disease. She is responding with stable disease to Folfirinox albeit with cytopenias requiring the dose delay. PAST MEDICAL HISTORY 1. Metastatic pancreatic cancer. 2. Chemotherapy-induced anemia. 3. Chemotherapy-induced thrombocytopenia. 4. Deep vein thromboses and pulmonary embolism. 5. Splenic vein occlusion. 6. Unintentional weight loss. PAST SURGICAL HISTORY 1. Colonoscopy. 2. Port placement. 3. Tonsillectomy. 4. EUS for FNA of pancreas, CT-guided liver biopsy. ALLERGIES No known drug allergies. SOCIAL HISTORY She is , lives with her . They recently moved to the [facility]. She quit smoking 16 years ago. She has a 40 pack-year smoking history. She was a former drinker. She denies any illicit drug use. FAMILY HISTORY Mother and father are . Brother had prostate cancer. PHYSICAL EXAMINATION VITAL SIGNS: Temperature 100.1, heart rate 92, respiratory rate 20, blood pressure 148/72. GENERAL: Ms. Sharma is a well-developed, pale-appearing woman with alopecia. Her pupils are round, reactive to light and accommodation. Oropharynx is clear. NECK: Supple with no adenopathy. Lungs: Clear. CARDIOVASCULAR: Exam reveals mild tachycardia. ABDOMEN: With diffuse tenderness, pain in the right upper quadrant. LOWER EXTREMITIES: With no edema. NEUROLOGICAL: Exam is nonfocal. LABORATORY DATA Hemoglobin of 8.4, as described above. IMAGING STUDIES CT scan findings as described. ASSESSMENT AND PLAN: Mrs. Sharma is a 61-year-old woman with metastatic pancreatic cancer. She has a pancreas cancer at the tail of the pancreas with multiple liver lesions. She has bony metastatic disease as well. She is stable on Folfirinox. Her chemo was held due to thrombocytopenia. I concur with transfusion for the anemia. No specific therapy is required for the thrombocytopenia. She is not acutely bleeding. Although her hemoglobin is decreased there is no bleeding. She is admitted with acute cholecystitis evidenced by a CT scan. Her bilirubin is normal. It explains her symptoms of abdominal pain and nausea and vomiting. Dr. Ovalles was consulted. The case was discussed with him at length. We plan to proceed with more conservative approach. Dr. Ovalles discussed the option of cholecystostomy tube placement with the patient who concurred. She will continued antibiotic therapy overnight. We discussed reversal of her Pradaxa in light of her needs. Proceed with cholecystostomy tube placement in the morning. Her last dose of Pradaxa was about 5 hours ago. She had been able to take her dose earlier. We will monitor closely for bleeding. Reversal of Pradaxa will be coordinated with [employer]. A standard one-time dose will be administered per package insert. We will reverse her Pradaxa. This would invariably increase her risk for venous thromboembolic event. After Pradaxa infusion she will be started on unfractionated heparin. The unfractionated heparin will be turned off at least two hours prior to her cholecystostomy or procedure placement. Her questions were answered to her satisfaction. The plan was discussed with Dr. Haque and Dr. Ovalles. MD BUDDY Morrell/KIRILL /11:41 PM /5:43 AM
--- NOTE | 2016-11-21 08:12 | MB ---
cc: REJI DYKES M.D. REFERRING PHYSICIAN Dr. Guy Haque CHIEF COMPLAINT Dr. Haque requests a consultation for Mrs. Sharma regarding abdominal pain and acute anemia. HISTORY OF PRESENT ILLNESS Mrs. Sharma is a 61-year-old woman originally from [place], [place] and moved to the [facility]. She is diagnosed with metastatic pancreatic cancer. She has metastatic disease to the liver and bone. Her original cancer is in the tail of the pancreas. She has response to FOLFIRI and has a decrease in size in the liver lesion. The pancreatic mass appears to be stable. The bone lesions appear to be more sclerotic. Her tumor marker has returned back to normal and is suppressed. She had her last dose of Folfirinox 2 weeks ago. Her next cycle of chemotherapy was held yesterday due to cytopenias. She noted an episode of nausea yesterday in clinic. She had one episode of vomiting and then stopped. She came into clinic with intention of getting her chemotherapy but held due to thrombocytopenia. Her chemo was rescheduled for next week. However, she continued to feel unwell. She had abdominal discomfort. She had more nausea and vomiting. She denies any melena or bright red blood per rectum. She continued to take her standard medication including her new oral anticoagulant direct thrombin inhibitor. She has a history of venous thromboembolic events. She denies any overt bleeding. She has no headaches. She has had no trauma. No fevers, chills or night sweats. The rest of her review of system was essentially negative. Because of severe abdominal pain, she presented to the emergency room and seen by Dr. Haque who coordinated CT scan of the abdomen that showed her metastatic liver disease. There is thickened edematous gallbladder consistent with acute cholecystitis. There is free fluid in the pelvis. There is hypodense lesion at the tail of the pancreas measuring 3.3 x 1.8 cm. This is her known pancreatic cancer. On admission, her hemoglobin had decreased to 8.2. Her PT/PTT are prolonged. She took her direct thrombin inhibitor this morning. Her liver functions are mildly elevated AST 50, ALT 66, alkaline phosphatase is 190, bilirubin is normal. Her last CA 19-9 was normal at 15.4. The case was discussed with Dr. Haque and subsequently with Dr. Ovalles. PAST MEDICAL HISTORY 1. DVT and pulmonary embolism on 07/18/16 2. Splenic vein occlusion 3. Chemotherapy-induced thrombocytopenia 4. Unintentional weight loss 5. Metastatic pancreatic cancer diagnosed in May of 2016 6. Chemotherapy induced anemia. PAST SURGICAL HISTORY 1. Colonoscopy 2. Port placement 3. Tonsillectomy 4. EUS for biopsy of pancreas 5. CT guided liver biopsy ALLERGIES No known drug allergies MEDICATIONS 1. Lamotil p.r.n. 2. Marinol 3. Multivitamin 4. Ondansetron 5. Pradaxa 6. Compazine p.r.n. FAMILY HISTORY Both parents are . No significant family history of cancer in parents. SOCIAL HISTORY She is , lives with her . They have moved down to [facility] from [place]. She quit smoking 16 years ago with 40 pack year smoking history. She denies any alcohol of illicit drug use. PHYSICAL EXAMINATION VITAL SIGNS: Temp 100.1, heart rate 92, respiratory rate 20, BP 148/72, saturation 95%. GENERAL: Mrs. Sharma is a well-developed, tired appearing woman. She has generalized pallor. HEENT: Pupils are round, reactive to light and accommodation. Oropharynx is dry. NECK: Supple LUNGS: Clear. CARDIOVASCULAR: Normal rate and rhythm ABDOMEN: Distended, some tenderness in the upper abdomen. LOWER EXTREMITIES: With no edema. NEUROLOGIC: Nonfocal. She has alopecia. LABORATORY DATA Hemoglobin 8.2, platelet count of 70,000. ASSESSMENT/PLAN Mrs. Sharma is a 61-year-old woman with multiple medical problems described above. She is diagnosed with metastatic pancreatic cancer and is receiving palliative chemotherapy. She has cytopenias related to her chemotherapy, namely chemotherapy induced thrombocytopenia and chemotherapy induced anemia. She comes in with nausea and vomiting. She is 2 weeks from her chemotherapy, is pending to start the new cycle. She is found to have acute cholecystitis by imaging. Her bilirubin is normal. I discussed with Dr. Ovalles the concern for her acute cholecystitis. She is at risk for cholecystectomy in light of her liver metastatic disease and disease in the pancreas.. We discussed the options of acute cholecystectomy versus cholecystostomy and decompression. There is the issue of her anticoagulant therapy. She is on Pradaxa and her last dose was this morning. We discussed deferring any invasive procedure. We can use [employer]xbind as needed to reverse her anticoagulation the reversal agent for Pradaxa. We will need to explore if it is available. She is at increased risk for thrombosis after reversal in light of her history of venous thromboembolic event and pulmonary embolism. ADDENDUM Last discussed with Dr. Ovalles, the plan is to place a cholecystostomy tube in the morning. She appears to be clinically stable. Antibiotic therapy will be initiated. Pain regimen was initiated. She will receive blood transfusion support. Her anticoagulant therapy will be on hold. MD BUDDY Morrell/ /10:10 PM /8:07 AM ZACK
[2016-11-23] MEDS ORDERED: LOMO2.5T PO (11:03)
[2016-11-23] MEDS ORDERED: DRON2.5C PO (11:03)
[2016-11-23] MEDS ORDERED: PROC10TA PO (11:03)
== END 2016-11-19 18:26 | disposition home health service (06) | DRG 445 ==
LOC: NEPE 10:56 → NEDA 17:39 → HCIS 21:23
PROVIDERS: ADMIT Hospitalist; ATTEND Hospitalist
PROC: 30233N1 Transfusion of Nonautologous Red Blood Cells into Peripheral Vein, Percutaneous Approach (ICD-10-PCS; principal; 2016-11-17)
PROC: 0F9430Z Drainage of Gallbladder with Drainage Device, Percutaneous Approach (ICD-10-PCS; 2016-11-18)
PROC: BF121ZZ Fluoroscopy of Gallbladder using Low Osmolar Contrast (ICD-10-PCS; 2016-11-18)
DX: K81.0 Acute cholecystitis (principal); C78.7 Secondary malignant neoplasm of liver and intrahepatic bile duct; C25.2 Malignant neoplasm of tail of pancreas; D68.59 Other primary thrombophilia; D64.81 Anemia due to antineoplastic chemotherapy; D69.59 Other secondary thrombocytopenia; R63.4 Abnormal weight loss; R19.7 Diarrhea, unspecified; T45.1X5A Adverse effect of antineoplastic and immunosuppressive drugs, initial encounter; Z79.01 Long term (current) use of anticoagulants; Z86.711 Personal history of pulmonary embolism; Z86.718 Personal history of other venous thrombosis and embolism; Z87.891 Personal history of nicotine dependence
CPT/HCPCS: 36430; 47532; 74177; 76705; 80048; 80053; 81001; 83690; 85007; 85027; 85610; 85730; 86850; 86900; 86901; 86920; 87040; 87086; 96361; 96374; 96375; 99152; 99153; C1729; C1769; J1170; J1644; J1650; J2250; J2405; J2543; J3010; J7030; J7050; P9016; Q9963; Q9967

== ENCOUNTER 2016-12-02 09:24 | Day surgery (SDC) | payer OTHER ==
[~2016-12-02 09:24] MED LIST: CIPR500T2 PO; DRON2.5C PO; DRON5CAP PO; ENOX80P SQ; FERR325T8 PO; LOMO2.5T PO; METR-1 PO; MULTTAB67 PO; NORC5TAB PO; OXAL50IN IV; PROC10TA PO; PROM25TA10 PO; VITA500T83 PO; ZOFR4TAB PO; [UNRECOGNIZED DRUG - CODE] IV; [UNRECOGNIZED DRUG - CODE] IV
[2016-12-02] MEDS ORDERED: IOHEXOL 350 MG/ML 50 ML BTL (for RAD DIAG) OTHER ONE (09:25)
[2016-12-02 09:36] VITALS: BP 122/84; PULSE 86; RESP 20; TEMP 98.1; O2SAT 94
[2016-12-02] MEDS ORDERED: SODIUM CHLORIDE 0.9% 1000 ML IV SCH (10:00)
[2016-12-02 10:55] VITALS: BP 121/46; PULSE 65; RESP 20; O2SAT 97
--- NOTE | 2016-12-02 10:56 | PD.RAD ---
Post Procedure Progress Note Pre Procedure Diagnosis: (1) Biliary obstruction Post Procedure Diagnosis: (1) Biliary obstruction Procedure Date: Dec 02, 2016 Supervising Radiologist: Armando Long JR Proceduralist/Assist: Dania Lundberg, RT(R)(), Ghislaine Giron RT(R) Anesthesia: Other Plan of Activity Patient to Unit: ROPU Patient Condition: Good Additional Comments: Patient 2 weeks s/p raciel tube placement. Injection shows cystic duct and CBD patent. No stones seen. 3 weeks is the least amount of time before drain removal. Will cap tube with instruction to return to drainage if RUQ pain or nausea. Return next week for tube removal. See PACS Report for procedural detail/treatment Jr Ethan.,Armando Nance MD Dec 02, 2016 10:56
--- NOTE | 2016-12-02 16:21 | RADRPT ---
EXAM DATE/TIME: 12/02/2016 09:54 [facility] COMPARISON: No previous studies available for comparison. INDICATIONS : Patient with a history of cholecystitis, needs cholecystostomy tube evaluated. MEDICAL HISTORY : Metastatic pancreatic cancer Metastatic adenocarcinoma SURGICAL HISTORY : Colonoscopy Tonsillectomy Liver biopsy EUS FNA pancreas ENCOUNTER: Subsequent ACUITY: 3 weeks PAIN SCORE: 3/10 LOCATION: abdomen FLUORO TIME: 2.3 minutes IMAGE SERIES: 0 CONTRAST: 10 cc Omnipaque (iohexol) 350 PROCEDURE : 1. cholangiogram through existing tube The risks, benefits and alternatives to the procedure were explained and verbal and written consent w as obtained. The site was prepped in sterile fashion. Full sterile technique was used, including ca p, mask, sterile gloves and gown and a large sterile sheet. Hand hygiene and 2% chlorhexidine and/or betadine/alcohol prep was utilized per protocol for cutaneous antisepsis. Injection of contrast was performed into the cholecystostomy tube under direct fluoroscopic control. The tube is in good position. No filling defects observed. The cystic duct and common bile duct opaci fy with contrast. This spills into the duodenum. The patient has had the tube for exactly to weeks. There is a technical issue with the images being transferred. During this process the images were los t. CONCLUSION: Cystic duct and common bile duct are patent. The patient has only had the tube for 2 weeks. We discus sed the risks of bile peritonitis. The decision was made to have the patient return in one week to fl et our minimum standard of 3 weeks before tube removal. Armando Long Jr., MD on December 02, 2016 at 16:17 Board Certified Radiologist. This report was verified electronically.
== END 2016-12-02 11:15 | disposition home or self-care (01) ==
LOC: HROP 09:24 → HRIP 09:26 → HROP 11:15
PROVIDERS: ATTEND Surgery Trauma Surgery
DX: K81.0 Acute cholecystitis (principal)
CPT/HCPCS: 47531; Q9967